=== PATIENT | female | born 1980 | race Caucasian/White ===

== ENCOUNTER 2020-10-08 06:55 | Outpatient (REF) | payer OTHER, SELFPAY | END 2020-10-08 06:56 | disposition home or self-care (01) | LOC: HO.LAB 06:55 | PROVIDERS: Visit Provider Internal Medicine | DX: Z20.828 Contact with and (suspected) exposure to other viral communicable diseases (principal) | CPT/HCPCS: C9803; U0003 ==

== ENCOUNTER 2023-08-30 12:48 | Outpatient (AMB) | payer OTHER, SELFPAY ==
--- NOTE | 2023-08-30 13:03 | MHC.OFFVIS ---
Intake Vital Signs 08/30/23 13:16 Height 4 ft 11 in Weight 157 lb 6 oz BMI 31.8 BP 120/82 Blood Pressure Location Lt brachial Position Sitting Pulse 95 Pulse Source Pulse Oximeter Pulse Oximetry (%) 97 Oxygen Delivery Method Room Air Intake Visit Reasons: ENP-Headaches/numbness feet and hands-CON Intake Note: Pt presents to the office today for a new patient visit for headaches/numbness feet and hands. Pt state she has a headache everyday. Pt states she has tried OTC medications which help for a little while but then comes back. Allergies No Known Allergies Allergy (Verified 08/30/23 13:17) Medication List - Last Reconciled 08/30/23 by Sadaf Azar MD epinephrine 0.3 mg IM ONCE PRN omeprazole 40 mg PO DAILY HPI HPI Comments History of Present Illness Details 42y/o female comes for evaluation of headaches and numbness in her hands. She reports daily headaches for 9 months. The headaches are persistent and fluctuates in intensity. The headaches frontal and radiates to the back.she describes the headaches are pounding , has some light sensitivity . She has mild nausea occasionally. she feels her eyes are tired and has some blurred vision, visual aura( photopsia). No vomiting.she wakes up with headaches .she takes tylenol 1000mg bid and naprosyn 1-2 per week.she denies neck pain. she also started having intermittent numbness in her hands.Denies tingling in her hands. she used to be obese - had bariatric surgery . she used to have RONEL and with weight loss her sleep improved. [facility] Medical History (Updated 08/30/23 @ 14:04 by Sadaf Azra MD) Numbness Chronic migraine with aura Back pain Asthma Obstructive sleep apnea Hyperlipidemia Pulmonary HTN Intestinal malabsorption Intertrigo Abdominal pannus Surgical History Hx of bilateral breast reduction surgery H/O gastric sleeve Family History Mother Leukemia Hypertension Maternal Grandmother Hypertension Brother Hypertension Brother Parkinsons Social History Household Members: Spouse Housing: House Alcohol intake: current Alcohol intake frequency: a few times a month Alcohol type: wine Patient Tobacco Use Status: Never used Tobacco Review of Systems Const Reports headache(s) Eyes Reports blurry vision ENT Reports headache(s) Musc Reports back pain Neuro Reports headache(s) Physical Exam Vital Signs: Last Vital Signs Pulse 95 08/30/23 13:16 BP 120/82 08/30/23 13:16 Pulse Ox 97 08/30/23 13:16 Oxygen Delivery Method Room Air 08/30/23 13:16 BMI result Body Mass Index 31.8 Const General: cooperative, healthy appearing and comfortable Nutritional Appearance: average body habitus Orientation/consciousness: patient oriented x3 Eyes Pupils: Equal, round and reactive pupils present Neuro General: patient oriented x3, gait normal, tone normal, moves all extremities and no focal motor deficits Cranial nerves: Yes Facial sensation intact/muscles of mastication intact, Yes Equal, round and reactive pupils present, Yes Normal accommodation reflex present, Yes Bilaterally intact EOM present, Yes Nystagmus not present, Yes Normal facial strength present, Yes Midline tongue present, Yes Symmetric palate elevation present and Yes Ability to bilaterally elevate shoulders present Cognition (Neuro): normal cognition Gait exam (Neuro): Normal gait present Motor exam (neuro): 5/5 motor strength present throughout and Normal motor muscle tone present throughout Deep tendon reflexes (DTR's): Right triceps reflex intensity grade: 2+, Left triceps reflex intensity grade: 2+, Rt Biceps (C5, C6): 2+, Left biceps reflex intensity grade: 2+, Right brachioradialis reflex intensity grade: 2+, Left brachioradialis reflex intensity grade: 2+, Right patellar reflex intensity grade: 2+ and Left patellar reflex intensity grade: 2+ Coordination: [id number] test normal Assessment & Plan Assessment & Plan (1) Chronic migraine with aura: Comment: with medication overuse headache Code(s): G43.E09 - Chronic migraine with aura, not intractable, without status migrainosus (2) Numbness: Comment: allison hands ? carpal tunnel Code(s): R20.0 - Anesthesia of skin Plan Stop tylenol or other OTC meds I will start her on topiramate XR 25mg qd, magnesium 400mg qhs Vit B 2 400mg qam F/u Ophthalmology for vision testing EMG NCS to evaluate numbness UE Medications: New magnesium oxide 400 mg PO BEDTIME 30 tabs 6RF riboflavin (vitamin B2) 400 mg PO DAILY 30 tabs 6RF topiramate 25 mg PO DAILY 30 caps 6RF Coding Level of Care Code New Pt Level 4 (33513) Diagnoses Chronic migraine with aura G43.E09 Numbness R20.0
[2023-08-30 13:16] VITALS: BP 120/82; PULSE 95; O2SAT 97; BMI 31.8
== END 2023-08-30 13:49 | disposition home or self-care (01) ==
PROVIDERS: Visit Provider Psychiatry & Neurology Neurology
DX: G43.E09 Chronic migraine with aura, not intractable, without status migrainosus (principal); R20.0 Anesthesia of skin
CPT/HCPCS: 99204

== ENCOUNTER → 2023-08-30 12:48 | Outpatient (BNVA) | payer OTHER, SELFPAY | PROVIDERS: Visit Provider Psychiatry & Neurology Neurology ==

== ENCOUNTER 2023-11-09 11:56 | Outpatient (REF) | payer OTHER, SELFPAY ==
[2023-11-09 14:44] LABS: Appearance Urine Clear; Color Urine Yellow; Glucose Urine UA Negative (Negative); Leukocyte Esterase Urine Negative (Negative); Nitrite Urine Negative (Negative); Specific Gravity - Urine 1.025 (1.005-1.025); Urine Blood Negative (Negative); Urine Ketones Negative (Negative); Urine Protein Negative (Neg-Trace)
[2023-11-09 14:56] LABS: Hematocrit 38.9 % (37.0-47.0); Hemoglobin 12.8 g/dl (12.0-16.0); Mean Corpuscular HGB Conc 32.9 g/dl (31.0-35.0); Mean Corpuscular Hemoglobin 28.6 pg (27.0-33.0); Mean Corpuscular Volume 86.8 fL (80.0-98.0); Mean Platelet Volume 12.4 fL (9.4-12.3); Platelet Count 284 X10*3/uL (160-400); Red Blood Count 4.48 X10*6/uL (4.20-5.50); Red Cell Distribution Width 13.3 % (11.0-16.0); White Blood Count 6.4 X10*3/uL (4.8-10.8)
[2023-11-09 15:15] LABS: Alanine Aminotransferase 34 U/L (0-31); Albumin Level 4.1 g/dL (3.5-5.0); Alkaline Phosphatase 54 U/L (39-117); Anion Gap 10 (12-20); Aspartate Amino Transferase 21 U/L (5-31); Bilirubin Total 0.3 mg/dL (0.0-1.0); Blood Urea Nitrogen 14 mg/dL (9-16); Calcium 8.9 mg/dL (8.4-10.2); Carbon Dioxide 24 mmol/L (22-29); Chloride 109 mmol/L (96-108); Cholesterol 259 mg/dL (<200); Estimated Glomerular Filt Rate > 60; Glucose Fasting 93 mg/dL (60-99); HDL Cholesterol 45 mg/dL (>40); LDL Cholesterol Calculated 198 mg/dL (<100); Potassium 3.7 mmol/L (3.3-5.1); Sodium 139 mmol/L (135-145); Total Protein 7.4 g/dL (6.5-8.0); Triglycerides 83 mg/dL (<150)
[2023-11-09 15:31] LABS: Vitamin D 25-OH Total 36.9 ng/mL (>30)
[2023-11-10 07:34] LABS: HIV AB/AG Nonreactive (Nonreactive); HIV Num 1 0.04 S/CO (0.00-0.99); ~HepC Num1 0.11 S/CO (0.00-0.79); ~Hepatitis C Antibody Nonreactive (Nonreactive)
== END 2023-11-09 11:57 | disposition home or self-care (01) ==
LOC: HO.CHCLDS 11:56
PROVIDERS: Visit Provider Family Medicine
DX: E66.9 Obesity, unspecified (principal); E55.9 Vitamin D deficiency, unspecified; R03.0 Elevated blood-pressure reading, without diagnosis of hypertension
CPT/HCPCS: 36415; 80053; 80061; 81003; 82306; 85027; 86803; 87389

== ENCOUNTER 2023-11-30 19:11 | Outpatient (REF) | payer OTHER, SELFPAY ==
[2023-12-04 23:54] LABS: HPV mRNA E6/E7 rflx Not Detected (Not Detected)
[2023-12-05 04:33] LABS: C. trachomatis RNA TMA NOT DETECTED (NOT DETECTED); N. gonorrhoeae RNA TMA NOT DETECTED (NOT DETECTED); Trichomonas (NAAT) NOT DETECTED (NOT DETECTED)
== END 2023-11-30 19:12 | disposition home or self-care (01) ==
LOC: HO.HHCLNP 19:11
PROVIDERS: Visit Provider Family Medicine
DX: Z12.4 Encounter for screening for malignant neoplasm of cervix (principal); Z11.51 Encounter for screening for human papillomavirus (HPV); Z20.2 Contact with and (suspected) exposure to infections with a predominantly sexual mode of transmission
CPT/HCPCS: 36415; 87491; 87591; 87624; 87661; 88142

== ENCOUNTER 2024-01-01 15:45 | Outpatient (REF) | payer OTHER, SELFPAY | END 2024-01-01 15:46 | disposition home or self-care (01) | LOC: HO.CHCLNP 15:45 | PROVIDERS: Visit Provider Registered Nurse | DX: J02.9 Acute pharyngitis, unspecified (principal) | CPT/HCPCS: 87070 ==

== ENCOUNTER 2024-01-22 15:04 | Outpatient (REF) | payer OTHER, SELFPAY ==
[2024-01-22 17:28] LABS: MANUAL DIFF FLAG NO
[2024-01-22 17:36] LABS: Basophils Absolute Auto 0.1 X10*3/uL (0.0-0.2); Basophils Percent Auto 0.8 % (0-2); Eosinophils Absolute Auto 0.1 X10*3/uL (0.0-0.4); Eosinophils Percent Auto 1.9 % (0-4); Hematocrit 39.4 % (37.0-47.0); Hemoglobin 12.9 g/dl (12.0-16.0); Imm Gran Abs Auto 0.02 X10*3/uL (0.00-0.03); Imm Gran Pct Auto 0.3 % (0.0-0.4); Lymphocytes Absolute Auto 2.2 X10*3/uL (1.2-4.9); Lymphocytes Percent Auto 33.9 % (20-40); Mean Corpuscular HGB Conc 32.7 g/dl (31.0-35.0); Mean Corpuscular Hemoglobin 28.7 pg (27.0-33.0); Mean Corpuscular Volume 87.6 fL (80.0-98.0); Monocytes Absolute Auto 0.4 X10*3/uL (0.1-1.2); Monocytes Percent Auto 5.5 % (2-11); Neutrophils Absolute Auto 3.7 x10*3/uL (2.0-8.3); Neutrophils Percent Auto 57.6 % (45-73); Platelet Count 248 X10*3/uL (160-400); White Blood Count 6.3 X10*3/uL (4.8-10.8)
[2024-01-22 17:47] LABS: Monotest Negative (Negative)
[2024-01-23 19:34] LABS: Cytomegalovirus Ab IgM <30.00 AU/mL; EBV-NA IgG Index >600.00 U/mL; EBV-VCA IgM Ab <36.00 U/mL
== END 2024-01-22 15:05 | disposition home or self-care (01) ==
LOC: HO.CHCLDS 15:04
PROVIDERS: Visit Provider Family Medicine
DX: R59.0 Localized enlarged lymph nodes (principal)
CPT/HCPCS: 36415; 85025; 86308; 86644; 86645; 86664; 86665

== ENCOUNTER 2024-01-24 11:02 | Outpatient (REF) | payer OTHER, SELFPAY ==
--- NOTE | ~2024-01-24 | US_ITS ---
EXAMINATION: US SOFT TISSUE OF THE NECK CLINICAL INFORMATION: 43-year-old female with persistent left-sided neck pain, concern of LAD. COMPARISON: None available. TECHNIQUE: Linear transducer grayscale and color Doppler examination of the right and left neck at zones II, III, IV. FINDINGS: RIGHT NECK SOFT TISSUES: The largest nodes are as follows: Level II: 2.2 x 0.7 x 1.4 cm. Normal thalia architecture. Level II: 1.5 x 0.6 x 1.3 cm. Normal thalia architecture. Level IV: 1.2 x 0.6 x 0.9 cm. Normal thalia architecture. LEFT NECK SOFT TISSUES: The largest lymph node is as follows: Level II: 1.2 x 0.7 x 1.5 cm. Normal thalia architecture. US/US soft tiss head and/or neck IMPRESSION: There are mildly enlarged bilateral cervical lymph nodes, as detailed. These are nonspecific and possibly reactive. Recommend management on a clinical basis. If of continued clinical concern, consider short-term follow-up ultrasound imaging in 3-6 months to ensure stability/regression.
== END 2024-01-24 11:03 | disposition home or self-care (01) ==
LOC: HO.HMGCX 11:02
PROVIDERS: PCP Family Medicine; Visit Provider Family Medicine
DX: R05.9 Cough, unspecified (principal)
CPT/HCPCS: 76536

== ENCOUNTER 2024-04-04 10:06 | Outpatient (REF) | payer OTHER, SELFPAY ==
[2024-04-04 11:04] LABS: MANUAL DIFF FLAG NO
[2024-04-04 12:00] LABS: Basophils Percent Auto 0.9 % (0-2); Eosinophils Absolute Auto 0.1 X10*3/uL (0.0-0.4); Eosinophils Percent Auto 2.5 % (0-4); Hematocrit 40.7 % (37.0-47.0); Hemoglobin 13.5 g/dl (12.0-16.0); Imm Gran Abs Auto 0.01 X10*3/uL (0.00-0.03); Imm Gran Pct Auto 0.2 % (0.0-0.4); Lymphocytes Absolute Auto 1.6 X10*3/uL (1.2-4.9); Lymphocytes Percent Auto 37.2 % (20-40); Mean Corpuscular HGB Conc 33.2 g/dl (31.0-35.0); Mean Corpuscular Hemoglobin 28.5 pg (27.0-33.0); Mean Corpuscular Volume 85.9 fL (80.0-98.0); Mean Platelet Volume 12.3 fL (9.4-12.3); Monocytes Absolute Auto 0.3 X10*3/uL (0.1-1.2); Monocytes Percent Auto 7.4 % (2-11); Neutrophils Absolute Auto 2.3 x10*3/uL (2.0-8.3); Neutrophils Percent Auto 51.8 % (45-73); Platelet Count 204 X10*3/uL (160-400); Red Blood Count 4.74 X10*6/uL (4.20-5.50); Red Cell Distribution Width 13.3 % (11.0-16.0); White Blood Count 4.4 X10*3/uL (4.8-10.8)
[2024-04-04 12:03] LABS: INTERNATIONAL NORM RATIO 0.9 (0.9-1.1); Prothrombin Time 11.1 SEC (11.1-13.3)
[2024-04-04 12:06] LABS: Partial Thromboplastin Time 30.7 SEC (26.0-36.8)
[2024-04-04 12:48] LABS: Anion Gap 13 (12-20); Blood Urea Nitrogen 11 mg/dL (9-16); Calcium 9.4 mg/dL (8.4-10.2); Carbon Dioxide 23 mmol/L (22-29); Chloride 106 mmol/L (96-108); Estimated Glomerular Filt Rate > 60; Glucose Random 77 mg/dL (60-115); Potassium 4.2 mmol/L (3.3-5.1); Sodium 138 mmol/L (135-145)
[2024-04-04 12:49] LABS: HCG Quantitative < 2 mIU/mL
== END 2024-04-04 10:07 | disposition home or self-care (01) ==
LOC: HO.CHCLDS 10:06
PROVIDERS: Visit Provider Family Medicine
DX: Z01.818 Encounter for other preprocedural examination (principal)
CPT/HCPCS: 36415; 80048; 84702; 85025; 85610; 85730; 86850; 86900; 86901

== ENCOUNTER 2024-05-08 09:25 | Outpatient (REF) | payer OTHER, SELFPAY | END 2024-05-08 09:26 | disposition home or self-care (01) | LOC: HO.CHCLDS 09:25 | PROVIDERS: Visit Provider Family Medicine | DX: R79.89 Other specified abnormal findings of blood chemistry (principal) | CPT/HCPCS: 36415; 84443 ==

== ENCOUNTER 2024-07-16 07:34 | Outpatient (REF) | payer OTHER, SELFPAY ==
[2024-07-16 08:17] LABS: MANUAL DIFF FLAG NO
[2024-07-16 08:35] LABS: Basophils Percent Auto 0.8 % (0-2); Eosinophils Absolute Auto 0.1 X10*3/uL (0.0-0.4); Eosinophils Percent Auto 2.5 % (0-4); Hematocrit 40.1 % (37.0-47.0); Imm Gran Abs Auto 0.02 X10*3/uL (0.00-0.03); Imm Gran Pct Auto 0.4 % (0.0-0.4); Lymphocytes Absolute Auto 1.9 X10*3/uL (1.2-4.9); Lymphocytes Percent Auto 38.3 % (20-40); Mean Corpuscular HGB Conc 32.4 g/dl (31.0-35.0); Mean Corpuscular Hemoglobin 28.3 pg (27.0-33.0); Mean Corpuscular Volume 87.2 fL (80.0-98.0); Mean Platelet Volume 11.9 fL (9.4-12.3); Monocytes Absolute Auto 0.3 X10*3/uL (0.1-1.2); Monocytes Percent Auto 5.6 % (2-11); Neutrophils Absolute Auto 2.6 x10*3/uL (2.0-8.3); Neutrophils Percent Auto 52.4 % (45-73); Platelet Count 207 X10*3/uL (160-400); Red Cell Distribution Width 13.7 % (11.0-16.0); White Blood Count 4.9 X10*3/uL (4.8-10.8)
[2024-07-16 08:39] LABS: INTERNATIONAL NORM RATIO 0.9 (0.9-1.1); Prothrombin Time 11.4 SEC (11.1-13.3)
[2024-07-16 08:42] LABS: Partial Thromboplastin Time 30.3 SEC (26.0-36.8)
[2024-07-16 08:46] LABS: Appearance Urine Clear; Color Urine Yellow; Glucose Urine UA Negative (Negative); Leukocyte Esterase Urine Negative (Negative); Nitrite Urine Negative (Negative); PH >= 9.0 (5.0-9.0); Urine Blood Negative (Negative); Urine Ketones Negative (Negative); Urine Protein Negative (Neg-Trace)
[2024-07-16 09:06] LABS: Bacteria Urine None Seen (None Seen); Hyaline Casts Urine 0-2 /LPF (0-2); RBC Urine 0-2 /HPF (0-2); Squamous Epithelial Cell Urine 0-2 /HPF (0-2); WBC Urine 0-5 /HPF (0-5)
[2024-07-16 09:28] LABS: Alanine Aminotransferase 14 U/L (0-31); Albumin Level 3.9 g/dL (3.5-5.0); Alkaline Phosphatase 45 U/L (39-117); Anion Gap 10 (12-20); Aspartate Amino Transferase 14 U/L (5-31); Bilirubin Total 0.4 mg/dL (0.0-1.0); Blood Urea Nitrogen 13 mg/dL (9-16); Calcium 8.6 mg/dL (8.4-10.2); Carbon Dioxide 24 mmol/L (22-29); Chloride 111 mmol/L (96-108); Cholesterol 242 mg/dL (<200); Estimated Glomerular Filt Rate > 60; Glucose Random 90 mg/dL (60-115); HDL Cholesterol 41 mg/dL (>40); LDL Cholesterol Calculated 182 mg/dL (<100); Potassium 4.3 mmol/L (3.3-5.1); Sodium 141 mmol/L (135-145); Total Protein 6.7 g/dL (6.5-8.0); Triglycerides 96 mg/dL (<150)
[2024-07-16 09:32] LABS: HIV AB/AG Nonreactive (Nonreactive); HIV Num 1 0.05 S/CO (0.00-0.99); ~HepC Num1 0.19 S/CO (0.00-0.79); ~Hepatitis C Antibody Nonreactive (Nonreactive)
[2024-07-16 09:45] LABS: HCG Quantitative < 2 mIU/mL; Vitamin D 25-OH Total 23.3 ng/mL (>30)
== END 2024-07-16 07:35 | disposition home or self-care (01) ==
LOC: HO.LAB 07:34
PROVIDERS: PCP Family Medicine; Visit Provider Family Medicine
DX: Z01.810 Encounter for preprocedural cardiovascular examination (principal); E66.9 Obesity, unspecified; R03.0 Elevated blood-pressure reading, without diagnosis of hypertension; E55.9 Vitamin D deficiency, unspecified
CPT/HCPCS: 36415; 80053; 80061; 81001; 82306; 84702; 85025; 85610; 85730; 86803; 87389

== ENCOUNTER 2024-09-02 08:37 | Outpatient (REF) | payer OTHER, SELFPAY ==
[2024-09-02 14:12] LABS: MANUAL DIFF FLAG NO
[2024-09-02 14:16] LABS: Eosinophils Absolute Auto 0.1 X10*3/uL (0.0-0.4); Eosinophils Percent Auto 1.8 % (0-4); Hematocrit 36.2 % (37.0-47.0); Hemoglobin 11.1 g/dl (12.0-16.0); Imm Gran Abs Auto 0.01 X10*3/uL (0.00-0.03); Imm Gran Pct Auto 0.3 % (0.0-0.4); Lymphocytes Absolute Auto 1.5 X10*3/uL (1.2-4.9); Lymphocytes Percent Auto 36.5 % (20-40); Mean Corpuscular HGB Conc 30.7 g/dl (31.0-35.0); Mean Corpuscular Hemoglobin 27.8 pg (27.0-33.0); Mean Corpuscular Volume 90.7 fL (80.0-98.0); Monocytes Absolute Auto 0.3 X10*3/uL (0.1-1.2); Monocytes Percent Auto 8.3 % (2-11); Neutrophils Absolute Auto 2.1 x10*3/uL (2.0-8.3); Neutrophils Percent Auto 52.1 % (45-73); Platelet Count 282 X10*3/uL (160-400); Red Blood Count 3.99 X10*6/uL (4.20-5.50); Red Cell Distribution Width 15.2 % (11.0-16.0)
[2024-09-02 14:33] LABS: Iron 57 mcg/dL (30-160); Percent Iron Saturation 19 % (15-50); Total Iron Binding Capacity 296 mcg/dL (228-428); Unsaturated Iron Binding 239 ug/dL
[2024-09-02 14:55] LABS: Ferritin 75 ng/mL (10-250)
== END 2024-09-02 08:38 | disposition home or self-care (01) ==
LOC: HO.CHCLDS 08:37
PROVIDERS: Visit Provider Family Medicine
DX: R89.9 Unspecified abnormal finding in specimens from other organs, systems and tissues (principal)
CPT/HCPCS: 36415; 82728; 83540; 85025

== ENCOUNTER 2025-04-15 08:25 | Outpatient (REF) | payer OTHER, SELFPAY ==
--- OUTSIDE RECORDS SUMMARY | 2025-04-15 08:35 | XMS_ITS | Encounter Summary ---
Author Organization [employer] Address [address] [place] [address] Care Team Providers Care Construction Representative Name Role Phone Jody Rey MD Primary Care Provider [phone] Encounter Details Date Type Department Care Team ([facility] st Contact Info) Description 01/10/2025 Orders Only [place] [address] [place] [address] Provider, MD Isa Social History Tobacco Use Types Packs/Day Years Used Date Smoking Tobacco: Never Passive Smoke Exposure: Never Smokeless Tobacco: Never Depression Answer Date Recorded Patient Health Questionnaire-9 Score 4 11/09/2023 Patient Health Questionnaire-9 Score 4 11/09/2023 Last PHQ-9: Questionnaire Data Not on file 1 01/10/2023 Housing Stability Answer Date Recorded What is your housing situation today? I have lewkalyan sebastian 11/02/[address] you li ve. Do you have problems with any of the following? None of the above 11/02/2023 Food Insecurity Answer Date Recorded Within the past 12 months, y ou worried that your food would run out before you got money to buy more: Never True 11/02/2023 Within the past 12 months,th e food you bought just didn't last and you didn't have enough money to get more: Never True 05/2023 Transportation Answer Date Recorded In the past 12 months, has l ack of transportation kept you from medical appts, meetings, work or from getting things needed for daily living? No 11/02/2023 Utilities Answer Date Recorded In the past 12 months, has t he electric, gas, oil or water company threatened to shut off services in your home? No 11/02/2023 Depression Answer Date Recorded Patient Health Questionnaire-2 Score 2 11/09/2023 Comments No Sex and Gender Information Value Date Recorded Sex Assigned at Female 09/26/2022 10:39 AM EDT Legal Sex Female 3:37 PM EDT Gender Identity Female 11/09/2023 12:26 PM EST Sexual Orientation Straight 11/09/2023 12 :26 PM EST documented as of this encounter Plan of Treatment Not on file documented as of this encounter Procedures Procedure Name Priority Date/Time Associated Diagnosis Comments BI MAMMOGRAM SCREENING BILATERAL Routine 01/09/2025 2:45 PM EST documented in this encounter Results * BI Mammogram Screening Bilateral (01/09/2025 2:45 PM EST) Anatomical Region Laterality Modality Breast Bilateral Mammography us Historical Provider MD MASTERS BI PROCEDURES Final R esult documented in this encounter Visit Diagnoses Not on filedocumented in this encounter Additional Health Concerns Assessment Noted Time PHQ-9 Depression Total Score: 4 11/09/20 10:51 AM EST documented as of this encounter Care Teams Construction Representative Relationship Specialty Start Date End Date Jody Rey MD [address] [place] [address] PCP - General Family Medicine 09/18/23 documented as of this encounter
--- OUTSIDE RECORDS SUMMARY | 2025-04-15 08:35 | XMS_ITS | Encounter Summary ---
Author Organization [employer] Address [address] [place] [address] Care Team Providers Care Woods Rider Name Role Phone Jody Rey MD Primary Care Provider [phone] Reason for Visit * Reason Onset Date Comments Medication Question 04/11/2025 Encounter Details Date Type Department Care Team ([facility] Contact Info) Description 04/11/2025 Telephone [facility] [address] [place] [address] Jody Rey MD [address] [place] [address] Medication Question Social History Tobacco Use Types Packs/Day Years Used Date Smoking Tobacco: Never Passive Smoke Exposure: Never Smokeless Tobacco: Never Depression Answer Date Recorded Patient Health Questionnaire-9 Score 6 04/04/2025 Patient Health Questionnaire-9 Score 6 04/04/2025 Last PHQ-9: Questionnaire Data Not on file 0 04/04/2025 Housing Stability Answer Date Recorded What is [...] Answer Date Recorded Patient Health Questionnaire-2 Score 1 04/04/2025 Internet Access Answer Date Recorded Internet Access Q1 Yes 03/28/2025 Internet Access Q2 Not on file 03/28/2025 Comments No Sex and Gender Information Value Date Recorded Sex Assigned at Female 09/26/2022 10:39 AM EDT Legal Sex Female 3:37 PM EDT Gender Identity Female 11/09/2023 12:26 PM EST Sexual Orientation Straight 11/09/2023 12 :26 PM EST documented as of this encounter Miscellaneous Notes * Telephone Encounter - Carolynn Blood - 04/11/2025 11:24 AM EDT Pt states zepbound is not covered by her insurance and pharmacy [facility] [address] stated if pt can be prescribed wegovy, pt aware to also call her insurance to verify they accept wegovy, any questions pls call pt documented in this encounter Plan of Treatment Not on file documented as of this encounter Visit Diagnoses Not on filedocumented in this encounter Additional Health Concerns Assessment Noted Time PHQ-9 Depression Total Score: 6 04/04/20 25 9:41 AM EDT documented as of this encounter Care Teams Woods Rider Relationship Specialty Start Date End Date Jody Rey MD [address] [place] [address] PCP - General Family Medicine 09/18/23 documented as of this encounter
--- OUTSIDE RECORDS SUMMARY | 2025-04-15 08:35 | XMS_ITS | Clinical Summary ---
Author Organization [address] [facility] Address [address] [place] [address] Phone Care Team Providers Care Electric Golf Cart Repairer Name Role Phone Jody Rey MD Primary Care Provider [phone] Allergies No known active allergies Medications cholecalciferol (VITAMIN D-3) 1,250 mcg (50,000 unit) capsule TOME 1 CAPSULA POR VIA ORAL TOMAS VEZ POR SEMANA 4 Active EPINEPHrine (EPIPEN) 0.3 mg/0.3 mL injection Infuse 0.3 mL (0.3 mg total) into a venous catheter. 3 Active levonorgestreL (MIRENA) 21 mcg/24hr (up to 8 yrs) 52 mg IUD 1 Device (1 each total) by intrauterine route 1 (one) time. 0 Active omeprazole (PriLOSEC) [address] capsule Take 1 capsule (20 mg total) by mouth. 3 Active Active Problems Problem Noted Date Diagnosed Date Primary pulmonary hypertension (CMS/HCC V24, CMS /HCC V28) 10/02/2024 Intestinal malabsorption following gastrectomy 1 Vitamin D deficiency 05/14/2019 Obesity (BMI 30.0-34.9) 02/12/2019 Overview (10/02/2024): s/p gastric sleeve (2017) Depression 05/31/2018 GERD (gastroesophageal reflux disease) 7 Overview (10/02/2024): H/o Minimal erosive gastritis EGD 01/27/2017, Neg for H. pylori. Probably caused by NSAIDs. Sleep related hypoventilatio n in conditions classified elsewhere 12/29/2015 Obstructive sleep apnea 12/29/2015 Overview (10/02/2024): [facility] Home Polysomnogram: Date 02/04/2019; EULA 12, AH 8; HI 5; Unclassified apneas 0; Obstructive apneas 46; Central apneas 15; Mixed apneas 1; hypopneas 39; average oxygen saturation 95% (lowest 78% without saturations <88% for 5% or more of study) - Obstructive Sleep Apnea - mild; mostly obstructive apneas and hypopneas; some central apneas; without sleep related hypoventilation by 2019 home polysomnogram. Asthma 10/29/2015 Prediabetes 01/23/2015 Overview (10/02/2024): 5.8 A1c Phlebolithiasis 11/25/2014 Overview (10/02/2024): CT abdomen w/contrast- no evidence of bowel obstruction or appendicitis Left ovary corpus luteum. Multiple phleboliths along rt ureter,no renal calculi or hydronephrosis. Rt sided retroperitoneal lymphadenopathy . ? Unclear etiology. Back pain 08/05/2014 Overview (10/02/2024): -minimal spondylitic change Hematuria 08/01/2014 Overview (10/02/2024): Flank pain. Nml CT- no renal stones/obstruction Headache 06/25/2014 Overview (10/02/2024): Seen in er at [facility] on 09/19/14 for headache,possible flagyl side effect Sent home on fioricet and stop flagyl . Ct head- negetive. Ct head- 11/05/14- neg Seen for headache at [facility] on Dec 8 as well as 9 -on percocet. Surgical History Surgery Date Site/Laterality Comments UPPER GASTROINTESTINAL ENDOSCOPY 01/27/2017 PROCEDURE: [place] UPPER GI ENDOSCOPY PERFORMED; COMMENT: mild erosive gastritis; CLOtest negative. TUBAL LIGATION 2002 PROCEDURE: HISTORICAL TUBAL LIGATION SECTION PROCEDURE: HISTORICAL DELIVERY COLONOSCOPY 12/23/2020 PROCEDURE: HISTORICAL COLONOSCOPY; COMMENT: normal. BREAST REDUCTION PROCEDURE: [place] BREAST REDUCTION; COMMENT: 1997 ESOPHAGOGASTRODUODENOSCOPY 01/26/2022 PROCEDURE: [place] EGD TRANSORAL BIOPSY SINGLE/MULTIPLE; COMMENT: consistent with gastric sleeve, biopsy normal Medical History Medical History Date Comments Family history of breast cancer 03/23/2018 DX:Family history of breast cancer; COMMENT: Pt myRisk negative with Tyrer-Cuzick Score = 8.2% = low risk Asthma 10/29/2015 DX:Asthma Back pain 08/05/2014 DX:Back pain; CO MMENT: Overview: -minimal spondylitic change Depression 05/31/2018 DX:Depression GERD (gastroesophageal reflu x disease) 01/30/2017 DX:GERD (gastroesophageal re flux disease); COMMENT: H/o Minimal erosive gastritis EGD 01/27/2017, Neg for H. pylori. Probably caused by NSAIDs. Headache 06/25/2014 DX:Headache; COM MENT: Overview: Seen in er at [facility] on 09/19/14 for headache,possible flagyl side effect Sent home on fioricet and stop flagyl . Ct head- negetive. Ct head- 11/05/14- neg Seen for headache at [facility] on Nov 03 as well as 9 -on percocet. Hematuria 08/01/2014 DX:Hematuria; CO MMENT: Flank pain. Nml CT- no renal stones/obstruction Hyperlipidemia 10/29/2015 DX:Hyperlipidemi a Morbid obesity with BMI of 4 0.0-44.9, adult ([facility] V24, [facility] V28) 06/25/2014 DX:Morbid obesity wit h BMI of 40.0-44.9, adult ([facility]) Obstructive sleep apnea 12/29/2015 DX:Obstr uctive sleep apnea Phlebolithiasis 11/25/2014 DX:Phlebolithias is; COMMENT: CT abdomen w/contrast- no evidence of bowel obstruction or appendicitis Left ovary corpus luteum. Multiple phleboliths along rt ureter,no renal calculi or hydronephrosis. Rt sided retroperitoneal lymphadenopathy . ? Unclear etiology. Primary pulmonary hypertensi on ([facility] V24, [facility] V28) DX:Primary pulmonary hypert ension (HCC) Sleep-related hypoventilation 12/29/2015 DX :Sleep-related hypoventilation Family History Medical History Relation Name Comments Breast cancer Aunt mat aunt Other: Ovarian cancer Aunt mat aunt matern al aunt No Known Problems Brother 1 No Known Problems Brother 2 Alcohol abuse Father age 3 4; no paternal family information No Known Problems Maternal Grandfather Other cancer Maternal Grandmother as a yo mireille adult, glaucoma, cataract Leukemia Mother AIDS a ge 32 Other: breast cancer Other materna l great aunt; unilateral No Known Problems Paternal Grandfather No Known Problems Paternal Grandmother No Known Problems Sister No Known Problems Son 1 No Known Problems Son 2 No Known Problems Uncle Blindness Neg Hx Colon cancer Neg Hx Macular degeneration Neg Hx Strabismus Neg Hx Relation Name Status Comments Aunt mat aunt Alive Brother 1 Alive Brother 2 Alive Father (Age 34) alcoholic Maternal Grandfather Maternal Grandmother Alive Mother (Age 32) leukemia; AIDS Other Alive Paternal Grandfather Paternal Grandmother Sister Son 1 Alive Son 2 Alive Uncle Social History Tobacco Use Types Packs/Day Years Used Date Smoking Tobacco: Never Smokeless Tobacco: Never Alcohol Use Standard Drinks/Week Comments Yes 0 (1 standard drink = 0.6 oz pur e alcohol) Comments No Sex and Gender Information Value Date Recorded Sex Assigned at Not on file Legal Sex Female 9:02 AM EST Gender Identity Not on file Sexual Orientation Not on file Obstetrics History Para Term AB IAB SAB Ectopic Multiple Livin g Live Births 2 2 2 2 Date Outcome GA Total Labor Labor/2nd/3rd Weight Sex Type Anes PTL Kendal A1 A5 Name Clin Term Term Last Filed Vital Signs Vital Sign Reading Time Taken Comments Blood Pressure 132/85 11/28/2024 1:46 PM EST Pulse 89 11/28/2024 1:46 PM EST Temperature 36.4 ??C (97.6 ??F) 11/28/2024 1:46 PM ES T Respiratory Rate - - Oxygen Saturation - - Inhaled Oxygen Concentration - - Weight 67.6 kg (149 lb) 11/28/2024 1:46 PM EST Height 149.9 cm (4' 11 ) 11/28/2024 1:46 PM EST Body Mass Index 30.09 11/28/2024 1:46 PM EST Plan of Treatment Upcoming Encounters Date Type Department Care Team (Late st Contact Info) Description 12/02/2025 10:00 AM EST Office Visit Bariatric Surgery - [place] [address] [place] [id number] Silvestre Reza MD [address] [place] [address] Health Maintenance Due Date Last Done Comments DTaP,Tdap,and Td Vaccines (1 - Tdap) 1998 Hepatitis B Vaccines (1 of 3 - 19+ 3-dose series) 1998 Cervical Cancer Screening: HPV 2000 Pneumococcal Vaccine: Pediatrics (0 to 5 Years) and At-Risk Patients (6 to 64 Years) (2 of 2 - PCV) 01/25/2019 01/25/2018 Colorectal Cancer Screening: Colonoscopy 11/05/2022 Social Influencers of Health Screening 11/05/2022 COVID-19 Vaccine ( season) 2024 11/02/2021, 01/27/2021, 01/06/2021 Depression Screening 11/09/2024 11/09/2023 Hypertension/CHF/CAD Annual BMP Blood Test 11/28/2024 Influenza Vaccine (Season Ended) 2025 10/05/2021, 02/05/2020 Breast Cancer Screening 01/09/2027 01/09/20, 07/01/2022, 07/09/2021, Additional history exists Cholesterol Screening (Lipid Panel) 07/16/2029 07/16/2024 HIV Screening Completed 07/16/2024 Hepatitis C Screening Completed 07/16/2024 HIB Vaccines Aged Out No longer eligi ble based on patient's age to complete this topic HPV Vaccines Aged Out No longer eligi ble based on patient's age to complete this topic Hepatitis A Vaccines Aged Out No long er eligible based on patient's age to complete this topic IPV Vaccines Aged Out No longer eligi ble based on patient's age to complete this topic MMR Vaccines Aged Out No longer eligi ble based on patient's age to complete this topic Meningococcal ACWY Vaccine Aged Out N o longer eligible based on patient's age to complete this topic Meningococcal B Vaccine Aged Out No l onger eligible based on patient's age to complete this topic RSV Immunization Patients Under 20 months Aged Out No longer eligible based on patient's age to complete this topic Varicella Vaccines Aged Out No longer eligible based on patient's age to complete this topic Procedures Procedure Name Priority Date/Time Associated Diagnosis Comments MG MAMMO DIGITAL SCREENING W NATALIA BILAT Routine 01/09/2025 8:02 AM EST Screening mammogram, encounter for from Last 3 Months or Most Recently Relevant to Health Maintenance Results * MG Mammo Digital Screening w Natalia bilat (01/09/2025 8:02 AM EST) Anatomical Region Laterality Modality Breast Bilateral Mammography 01/09/2025 2:05 PM EST Impressions 01/09/2025 2:08 PM EST No mammographic evidence of malignancy. BREAST DENSITY: B - There are scattered areas of fibroglandular density. BI-RADS CATEGORY: 2 - BENIGN RECOMMENDATION: Screening bilateral mammogram is recommended in 1 year. MAMMO LOCATION: [facility], [address] [place] [address], [id number], . -------- FINAL REPORT -------- Dictated By: Lavonne Rinaldi Dictated Date: 01/09/2025 14:05 ET Assigned Physician: Lavonne Rinaldi Reviewed and Electronically Signed By: Lavonne Rinaldi Signed Date: 01/09/2025 14:08 ET Workstation ID: [id number] Transcribed By: Self Edit Transcribed Date: 01/09/2025 14:05 ET Narrative 01/09/2025 2:08 PM EST EXAM: Screening Mammogram CLINICAL: 44 years old, Female, routine annual exam. ??History of bilateral reduction mammoplasty July 2024. COMPARISON: 07/01/2022 and 06/25/2021 TECHNIQUE: Bilateral MLO and CC views were obtained digitally with 3-D mammogram (digital breast tomosynthesis). Computer-aided detection was utilized in evaluation of this exam (CAD). FINDINGS: Interval postsurgical changes of bilateral reduction mammoplasty which have expected appearance. ??This will serve as a new baseline mammogram. ??No suspicious mass, architectural distortion, or suspicious calcifications identified. Procedure Note Lavonne Rinaldi MD - 01/09/2025 EXAM: Screening Mammogram CLINICAL: 44 years old, Female, routine annual exam. History of bilateralreduction mammoplasty July 2024. COMPARISON: 07/01/2022 and 06/25/2021 TECHNIQUE: Bilateral MLO and CC views were obtained digitally with 3-Dmammogram (digital breast tomosynthesis). Computer-aided detection wasutilized in evaluation of this exam (CAD). FINDINGS: Interval postsurgical changes of bilateral reduction mammoplasty whichhave expected appearance. This will serve as a new baseline mammogram.No suspicious mass, architectural distortion, or suspicious calcificationsidentified. IMPRESSION: No mammographic evidence of malignancy. BREAST DENSITY: B - There are scattered areas of fibroglandular density. BI-RADS CATEGORY: 2 - BENIGN RECOMMENDATION: Screening bilateral mammogram is recommended in 1 year. MAMMO LOCATION: [facility], [address] [place] [address], [id number], . 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
--- OUTSIDE RECORDS SUMMARY | 2025-04-15 08:35 | XMS_ITS | Encounter Summary ---
Author Organization [employer] Address [address] [place] [address] Care Team Providers Care Toe Stripper Name Role Phone Jody Rey MD Primary Care Provider [phone] Reason for Visit * Reason Comments Med Change Request Encounter Details Date Type Department Care Team ([facility] Contact Info) Description 04/04/2025 Refill [facility] [address] [place], [place] [phone] Jody Rey MD [address] [place] [address] Obstructive sleep apnea Social History Tobacco Use Types Packs/Day Years Used Date Smoking Tobacco: Never Passive Smoke Exposure: Never Smokeless Tobacco: Never Depression Answer Date Recorded Patient Health Questionnaire-9 Score 6 04/04/2025 Patient Health Questionnaire-9 Score 6 04/04/2025 Last PHQ-9: Questionnaire Data Not on file 0 04/04/2025 Housing Stability Answer Date Recorded What is your housing situation today? I have lew sebastian 11/02/[address] you [...] PM EST documented as of this encounter Functional Status * Over the past 2 weeks, how often have you been bothered by any of the following problems? Question Answer Date of Assessment Author Patient Health Questionnaire-2 Score 1 07/2025 9:41 AM EDT Monalisa Huffman [place] * Little interest or pleasure in doing things Answer Date of Assessment Author Not at all 04/04/2025 9:41 AM EDT Monalisa Huffman MA * Feeling down, depressed, or hopeless Answer Date of Assessment Author Several days 04/04/2025 9:41 AM NEHALT Monalisa Huffman MA * Trouble falling or staying asleep, or sleeping too much Answer Date of Assessment Author Several days 04/04/2025 9:41 AM EDT Monalisa Huffman MA * Feeling tired or having little energy Answer Date of Assessment Author More than half the days 04/04/2025 9:41 AM EDT Monalisa Reyes MA * Poor appetite or overeating Answer Date of Assessment Author Several days 04/04/2025 9:41 AM NEHALT Monalisa Huffman MA * Feeling bad about yourself - or that you are a failure or have let yourself or your family down Answer Date of Assessment Author Several days 04/04/2025 9:41 AM EDT Monalisa Huffman MA * Trouble concentrating on things, such as reading the newspaper or watching television Answer Date of Assessment Author Not at all 04/04/2025 9:41 AM EDT Monalisa Huffman MA * Moving or speaking so slowly that other people could have noticed? Or the opposite - being so fidgety or restless that you have been moving around a lot more than usual. Answer Date of Assessment Author Not at all 04/04/2025 9:41 AM EDT Monalisa Huffman MA * Thoughts that you would be better off or hurting yourself in some way Answer Date of Assessment Author Not at all 04/04/2025 9:41 AM EDT Monalisa Huffman MA * Patient Health Questionnaire-9 Score Answer Date of Assessment Author 6 04/04/2025 9:41 AM EDT Monalisa Huffman MA * How difficult have these problems made it for you to do your work, take care of things at home, or get along with other people? Answer Date of Assessment Author Somewhat difficult 04/04/2025 9:41 AM EDT Monalisa Matias MA documented as of this encounter Plan of Treatment Not on file documented as of this encounter Visit Diagnoses Diagnosis Obstructive sleep apnea Obstructive sleep apnea (adult) (pediatric) documented in this encounter Additional Health Concerns Assessment Noted Time PHQ-9 Depression Total Score: 6 04/04/20 25 9:41 AM EDT documented as of this encounter Care Teams Toe Stripper Relationship Specialty Start Date End Date Jody Rey MD [address] [place] [address] PCP - General Family Medicine 09/18/23 documented as of this encounter
--- OUTSIDE RECORDS SUMMARY | 2025-04-15 08:35 | XMS_ITS | Clinical Summary ---
Author Organization [employer] Address [address] [facility] [place] [address] Care Team Providers Care Mental Retardation Nurse Name Role Phone Jody eRy MD Primary Care Provider [phone] Allergies No known active allergies Medications * This document contains information received from the source organization and may not represent a complete record from that organization. Levonorgestrel 20 MCG/DAY intrauterine device 1 each by Intrauterine route 1 (one) time. 020 Active riboflavin (Vitamin B-2) 400 MG tablet TOME TOMAS TABLETA TODOS LOS D 023 Active Blood Pressure kit 1 Units in the morning. 1 kit 023 Active butalbital-acetam inophen-caffeine 50-325-40 MG tablet Take 1 tablet by mouth every 6 (six) hours if needed for headaches. 20 tablet 023 Active omeprazole (PriLOSEC) [address] capsuleIndication s:Gastroesophagea l Reflux Disease TAKE 2 CAPSULES (40 MG) BY MOUTH BEFORE BREAKFAST. 180 capsule 1 024 Active famotidine (Pepcid) 40 MG tablet Take 1 tablet (40 mg) by mouth at bedtime. 90 tablet 1 024 Active loratadine (Claritin) 10 MG tablet TOME TOMAS TABLETA TODOS LOS JIMENES EN LA MANANA 90 tablet 1 024 Active prednisoLONE acetate (Pred-Forte) 1 % ophthalmic suspension PONGA TOMAS GOTA EN LOS DOS OJOS TODOS LOS D 024 Active losartan (Cozaar) 50 MG tabletIndications :Elevated BP without diagnosis of hypertension TAKE 1 TABLET BY MOUTH EVERY MORNING 90 tablet 1 024 Active EPINEPHrine (Epipen) 0.3 MG/0.3ML injection syringe Inject 0.3 mL (0.3 mg) as directed 1 (one) time for 1 dose. 0.3 mL 024 Active tobramycin-dexAME THasone (Tobradex) ophthalmic suspension INSTILL 1 DROP INTO OPERATIVE EYE LAURI CHIRINOS A . START AFTER SURGERY. 024 Active omega-3 acid ethyl esters (Lovaza) 1 g capsuleIndication s:Hyperlipidemia, unspecified hyperlipidemia type Take 1 capsule (1 g) by mouth 2 times daily. 60 capsule 11 024 2024 Active cholecalciferol (Vitamin D-3) 1.25 MG (86257 UT) capsule Take 1 capsule (50,000 Units) by mouth 1 (one) time per week. 1 capsule 3 024 Active ferrous gluconate (Fergon) 324 (38 Fe) MG tablet Take 1 tablet (324 mg) by mouth with breakfast. 90 tablet 1 024 Active Tirzepatide-Weigh t Management (Zepbound) 2.5 MG/0.5ML solution auto-injectorIndi cations:Obstructi ve sleep apnea Inject 0.5 mL (2.5 mg) under the skin 1 (one) time per week. 2 mL 3 025 Active topiramate (Topamax) 50 MG tabletIndications :Other migraine without status migrainosus, intractable Take 1 tablet (50 mg) by mouth Once per day. 90 tablet 1 025 Active SUMAtriptan (Imitrex) 50 MG tablet Take 1 tablet (50 mg) by mouth 1 (one) time if needed for migraine. May repeat dose once in 2 hours if no relief. Do not exceed 2 doses in 24 hours. 9 tablet 025 Active melatonin 5 MG tablet Take 1 tablet (5 mg) by mouth Once per day. 90 tablet 1 025 Active topiramate (Topamax) 50 MG tabletIndications :Other migraine without status migrainosus, intractable Take 50 mg by mouth in the morning. 90 tablet 1 023 2024 Discontinued(R eorder (will not trigger notification to Pharmacy)) SUMAtriptan (Imitrex) 50 MG tablet TAKE 1 TABLET AT LEAST 4 HOURS BETWEEN DOSES NEEDED UP TO 2X/24H ORALLY TWICE A DAY 30 DAYS 024 2024 Discontinued(R eorder (will not trigger notification to Pharmacy)) Active Problems Problem Noted Date Diagnosed Date Penetrating traumatic injury of face 04/07/2025 Assessment & Plan (04/07/2025 8:23 AM EDT): Patient reports persistent scarring and subcutaneous issues following the traumatic incident, including swelling under the cheek. These concerns are causing ongoing discomfort and may be contributing to the patient's emotional distress. Plan: - Recommend silicone scar sheets (e.g., Scaraway patches) for scar management and keloid prevention - Refer to surgeon for evaluation of subcutaneous swelling, particularly under the cheek - Educate patient on proper use of silicone patches and their effectiveness compared to topical creams Acute stress disorder 03/24/2025 Assessment & Plan (04/07/2025 8:22 AM EDT): Patient reports significant emotional distress and anxiety following a traumatic accident with a basketball hoop. She describes feeling not the same since the incident, experiencing persistent anxiety, emotional eating, and difficulty sleeping. The patient mentions feeling pessimistic, tired, and like a different person. These symptoms, occurring for approximately 3 months post-incident, suggest post- traumatic stress. The patient's family dynamics, including a who doesn't believe in depression and conflicts with her son, may be exacerbating her emotional state. Plan: - Recommend continuation of therapy with current therapist - Discuss potential benefits of antidepressants, addressing patient's concerns about side effects - Encourage development of self-care routines and stress-reduction techniques - Suggest utilization of cam[place] for relaxation - Follow up in 4 weeks to reassess emotional state and effectiveness of interventions Assessment & Plan (03/24/2025 11:21 AM EDT): During IBH Consult Donna presenting with distress memories of her accident, flashbacks, psychological distress, efforts to avoid thoughts/feelings associated with her accident, sleep problem, hypervigilance and difficulty concentrating; for a period of 30 days, for most or all symptoms in the context of illness or family illness. Patient reported she had an accident at home. Pt was hit by basketball hoop last month and had an open area in her forehead. Since then, pt has experienced sxs described above. She feels anxious, scared and has been having issues sleeping and eating more than normal. Pt receives positive support at home. Her sense of resilience is strong and main strength. Pt will be referred for therapy services. Discussed importance of utilizing coping skills in her daily routine and continue applying strategies that are currently working for her. Pt agreed to follow-up with team if needed. Open wound 09/02/2024 Assessment & Plan (09/02/2024 11:09 AM EDT): Not infected, will close by secondary intention, discuss wound care. RTC if no improvement, area with granulation tissues. Abnormal laboratory test result 08/23/2024 Assessment & Plan (08/23/2024 1:31 PM EDT): Pt was advised to repeat labs on Aug 30 since she recently had an iron infusion. Relevant orders: -CBC auto differential -Ferritin -Iron and Total Iron Binding Capacity Preop cardiovascular exam 07/11/2024 Assessment & Plan (07/11/2024 4:22 PM EDT): Patient was seen for pre-operative evaluation. Patient reports no symptoms of CP at rest or with exertion, dyspnea at rest or with exertion, PND, LE edema, claudication, or palpitations. Patient has no hx of ischemic heart disease, CHF, CVD, diabetes, recent anticoagulant or antithrombotic use, person or family hx of coagulopathy. Patient reports no history of stress test, cardiac cath or coronary revascularization. Patients without any known cardiac risk factors (will undergo low risk surgery, no hx of ischemic heart disease, no h/o CVD, no h/o CHF, & no insulin dependent diabetes mellitus or known renal failure). According to the RCRI, this number of risk factors stratifies the patient to Class O, which carries a 0.4% risk of major CV complications. In this case, CV Risk is low for the intended procedure. Abdominal pain 04/16/2024 Assessment & Plan (04/16/2024 11:27 AM EDT): Reports she has a f/up with bariatric provider, they consider could be related to her bariatric surgery. At this moment will defer further testing and f/up as needed Bilateral hand swelling 04/11/2024 Assessment & Plan (04/12/2024 12:08 AM EDT): -The pt was informed that the swelling could be due to liquid retention related to her epicondylitis, affecting the extensor muscles of the hand (extensor carpi radialis). -Labs for TSH W/Reflex to FT4 to rule out any thyroid concerns possibly affecting the current symptoms the pt is experiencing Right lateral epicondylitis 04/11/2024 Assessment & Plan (04/12/2024 12:10 AM EDT): Pt was provided a list with instructions for therapeutic exercise to reduce swelling and discomfort. Lymphadenopathy 02/06/2024 Assessment & Plan (02/06/2024 9:46 PM EDT): Referred to ENT for Hx of persistent left sided cervical LAD, benign w/u Upper respiratory tract infection 01/22/2024 LAD (lymphadenopathy) of left cervical region Assessment & Plan (01/23/2024 10:15 AM EST): Reports persistent LAD on the left side of her neck. 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 FU PAP results. Consider PAP smear in the next 5 years if today's normal. HPV and Trichomonas specimen were obtained. FU results. No concerns for domestic violence. Hypertension 11/30/2023 Primary pulmonary hypertension 11/09/2023 1 01/10/2023 Intractable migraine without status migrainosus 11/09/2023 Assessment & Plan (11/09/2023 11:20 AM EST): Patient that presented visit with constant headaches will have an increase of Topamax to treat concern. In addition, patient will be referred to Neurology. Patient was advised to notify office if symptom doesn't improve. Intestinal malabsorption following gastrectomy 1 11/09/2023 Assessment & Plan (01/02/2024 12:33 PM EST): Referral to re-establish with bariatric provider sent 01/02/24 Vitamin D deficiency 05/14/2019 11/09/2023 Assessment & Plan (11/09/2023 11:21 AM EST): -Labs: Vit.D-25 Obesity (BMI 30.0-34.9) 02/12/2019 11/09/20 23 Overview (11/09/2023): s/p gastric sleeve (2017) Assessment & Plan (11/09/2023 11:25 AM EST): Discussed calorie deficit, recommended reduction of 20-30% of maintenance calories; testing director referral offered. Recommended to decrease soda and sugary beverage consumption. Recommended at least 20 g per meal of protein to assist with satiety. Recommended at least 150 min/week of moderate intensity exercise. Labs: CBC, Comp. Met. Panel, Lipid Panel. GERD (gastroesophageal reflux disease) 7 11/09/2023 Overview (01/02/2024): H/o Minimal erosive gastritis EGD 01/27/2017, Neg for H. pylori. Probably caused by NSAIDs. Assessment & Plan (02/06/2024 9:47 PM EDT): Referred to gastroenterology due to persistent epigastric pain, hx of GERD Sleep related hypoventilatio n in conditions classified elsewhere 12/29/2015 Obstructive sleep apnea 12/29/2015 Overview (04/04/2025): [facility] Polysomnogram: Date 02/04/2019; EULA 12, AH 8; HI 5; Unclassified apneas 0; Obstructive apneas 46; Central apneas 15; Mixed apneas 1; hypopneas 39; average oxygen saturation 95% (lowest 78% without saturations <88% for 5% or more of study) - Obstructive Sleep Apnea - mild; mostly obstructive apneas and hypopneas; some central apneas; without sleep related hypoventilation by 2019 home polysomnogram. Assessment & Plan (04/07/2025 8:21 AM EDT): Patient with a hx of sleep apnea, will start patient on zepbound for management of her sleep apnea as it is FDA approved for sleep apnea management. Reviewed mechanism of action with patient. Discussed side effects with patient: nausea, vomiting, diarrhea & risk of pancreatitis. No contraindications identified: , hx of pancreatitis, hx of medullary thyroid cancer or MEN 2. Hyperlipidemia 10/29/2015 11/09/2023 Prediabetes 01/23/2015 11/09/2023 Overview (11/09/2023): 5.8 A1c Phlebolithiasis 11/25/2014 11/09/2023 Overview (11/09/2023): CT abdomen w/contrast- no evidence of bowel obstruction or appendicitis Left ovary corpus luteum. Multiple phleboliths along rt ureter,no renal calculi or hydronephrosis. Rt sided retroperitoneal lymphadenopathy . ? Unclear etiology. Back pain 08/05/2014 11/09/2023 Overview (11/09/2023): Overview: -minimal spondylitic change Headache 06/25/2014 11/09/2023 Overview (11/09/2023): Overview: Seen in er at [facility] on 09/19/14 for headache,possible flagyl side effect Sent home on fioricet and stop flagyl . Ct head- negetive. Ct head- 11/05/14- neg Seen for headache at [facility] on Oct 8 as well as 9 -on percocet. Assessment & Plan (04/07/2025 8:20 AM EDT): Patient reports persistent headaches following the traumatic incident. She mentions photosensitivity and has an upcoming appointment with an sales support manager. The patient previously used Topamax for headache management but discontinued use. Given the post-traumatic nature and persistence of headaches, a comprehensive headache management plan is warranted. Plan: - Restart Topamax for headache prevention - Prescribe sumatriptan for acute management of severe headaches - Await ophthalmology consultation results - Recommend use of melatonin for sleep improvement - referral to neurology - Follow up in 4 weeks to assess effectiveness of headache management plan Resolved Problems Problem Noted Date Diagnosed Date Resolved Date Chronic cough 01/22/2024 02/06/2024 Assessment & Plan (01/23/2024 10:15 AM EST): Ddx postnasal drip Will send w/u for chronic cough Followup in 1 month Elevated BP without diagnosis of hypertension 11/09/2002/06/2024 Assessment & Plan (11/09/2023 11:25 AM EST): Uncontrolled: patient presented visit with an elevated blood pressure with readings of 148/94 mmHg. As a result, patient will be given a Blood pressure kit, in which was advised to monitor blood pressure at home, and bring readings upon next office visit. If home readings are consistently elevated, patient will be treated with medications to control readings. -Lab: Urinalysis. Encounters * This document contains information received from the source organization and may not represent a complete record from that organization. Date Type Department Care Team Description 04/11/2025 Telephone [facility] [address] [place] [address] Jody Rey MD Medication Question 04/04/2025 9:45 AM EDT Office Visit [facility] [address] [place] [address] Jody Rey MD Penetrating traumatic injury of face (Primary Dx); Intractable acute post-traumatic headache; Obstructive sleep apnea; Other migraine without status migrainosus, intractable; Anemia, unspecified type; Hyperlipidemia, unspecified hyperlipidemia type; Acute stress disorder 04/04/2025 Refill [facility] [address] [place] [address] Jody Rey MD Obstructive sleep apnea 04/04/2025 Travel 03/28/2025 Patient Outreach [facility] [address] [place], [place] [phone] Jody Rey MD Pre-visit Planning (SDOH screening negative and Tobacco screening negative) 02/14/2025 Telephone [facility] [address] [place], [place] [phone] Jody Rey MD 02/03/2025 2:40 PM EDT Office Visit [facility] [address] [place], [place] [phone] Kamala Villegas MD Contusion of soft tissue (Primary Dx); Laceration of forehead, initial encounter 02/03/2025 Travel from Last 3 Months Immunizations Immunization Administration Dates Next Due Influenza Injectable Quadriv alant Preservative Free IIV4 MDCK 10/05/2021,02/05/2020 Pneumococcal Polysaccharide PPSV23 01/25/2018 Social History Tobacco Use Types Packs/Day Years Used Date Smoking Tobacco: Never Passive Smoke Exposure: Never Smokeless Tobacco: Never Tobacco Cessation:Counseling Given: Not Answered Depression Answer Date Recorded Patient Health Questionnaire-9 [...] Orientation Straight 11/09/2023 12 :26 PM EST Last Filed Vital Signs Vital Sign Reading Time Taken Comments Blood Pressure 134/90 04/04/2025 9:35 AM EDT Pulse 84 04/04/2025 9:35 AM EDT Temperature 36.8 ??C (98.2 ??F) 04/04/2025 9:35 AM ED T Respiratory Rate 20 04/04/2025 9:35 AM EDT Oxygen Saturation 98% 04/04/2025 9:35 AM EDT Inhaled Oxygen Concentration - - Weight 68.8 kg (151 lb 9.6 oz) 04/04/2025 9:35 A M EDT Height 148 cm (4' 10.27 ) 04/04/2025 9:35 AM EDT Body Mass Index 31.39 04/04/2025 9:35 AM EDT Plan of Treatment Health Maintenance Due Date Last Done Comments CT Colonography 1979 Colonoscopy 1979 Colorectal Cancer Screening 1979 Diabetes: Hemoglobin A1C 1979 FIT DNA/Cologuard 1979 FIT 1979 FOBT 1979 Sigmoidoscopy 1979 Family Planning (PISQ) 1994 DTaP/Tdap/Td Vaccines (1 - Tdap) 1998 Hepatitis B Vaccines (1 of 3 - 19+ 3-dose series) 1998 COVID-19 Vaccine ( - 2023-2 5 season) 2024 11/02/2021, 01/27/2021, 01/06/2021 Influenza Vaccine (#1) 2024 , 02/05/2020 Mammogram 01/09/2026 01/09/2025, 01/09/2025, 01/09/2025 SDOH Screening 03/28/2026 03/28/2025 Alcohol/Substance Use Screening 04/04/2026 04/04/2025 Depression Screening 04/04/2026 04/04/2025, 04/04/2025 Disability Screening 04/04/2026 04/04/2025 Tobacco Screening 04/04/2026 04/04/2025 Pap Smear 11/30/2026 11/30/2023, 11/30/2023 Cervical Cancer Screening 11/30/2028 HPV/Cotest 11/30/2028 11/30/2023 Lipid Panel 07/16/2029 07/16/2024, 11/09/2023 Zoster Vaccines (1 of 2) 2029 RSV Patients and Patients Aged 60 years or older (1 - 1-dose 75+ series) 2054 Pneumococcal Vaccine: Pediatrics (0 to 5 Years) and At-Risk Patients (6 to 49) Years) Aged Out 01/25/2018 No longer eligible b ased on patient's age to complete this topic HIV Screening Completed 07/16/2024, 11/09/2023 Hepatitis C Screening Completed 07/16/2024 , 11/09/2023 HIB Vaccines Aged Out No longer eligi [...] patient's age to complete this topic Meningococcal Vaccine Aged Out No guillaume valerie eligible based on patient's age to complete this topic RSV under 20 months Aged Out No longe r eligible based on patient's age to complete this topic Rotavirus Vaccines Aged Out No longer eligible based on patient's age to complete this topic Procedures Procedure Name Priority Date/Time Associated Diagnosis Comments BI MAMMOGRAM SCREENING BILATERAL Routine 01/09/2025 2:45 PM EST HEPATITIS C AB W/REFL TO HCV RNA, QN, PCR Routine 07/16/2024 8:16 AM EDT HIV 1/2 ANTIGEN/ANTIBODY, FOURTH GENERATION W/RFL Routine 07/16/2024 8:16 AM EDT LIPID PANEL, STANDARD Routine 07/16/2024 8:16 AM EDT HPV MRNA E6/E7 REFLEX TO HPV 16, 18/45 Routine 11/30/2023 3:20 PM EST IMAGE-GUIDED PAP W/AGE BASED SCR,W/CT/NG/TRICH Routine 11/30/2023 3:20 PM EST Cervical cancer screening from Last 3 Months or Most Recently Relevant to Health Maintenance Results * BI Mammogram Screening Bilateral (01/09/2025 2:45 PM EST) Anatomical Region Laterality Modality Breast Bilateral Mammography Historical Provider IMG BI PROCEDURES Final R esult * Hepatitis C Antibody with Reflex to HCV, RNA, Quantitative, Real-Time PCR (07/16/2024 8:16 AM EDT) Hepatitis C Antibody Nonreactive Nonreactive [facility] Comment:Antibodies to HCV no t detected; does not exclude early acuteHCV infection. 07/16/2024 8:16 AM EDT 07/16/2024 8:16 AM EDT Jody Rey MD LAB BLOOD ORDERABLES Final Re sult [facility] [address] [place] [phone] * HIV-1/2 Antigen and Antibodies, Fourth Generation, with Reflexes (07/16/2024 8:16 AM EDT) HIV AB/AG Nonreactive Nonreactive [facility] Comment:HIV-1 p24 Ag and/or HIV-1/HIV-2 Ab not detected.A test result that is nonreactive does not exclude thepossibility of exposure to or infection with HIV-1 and/orHIV-2. Nonreactive results in this assay for individualswith prior exposure to HIV-1 and/or HIV-2 may be due toantigen and antibody levels that are below the limit ofdetection of this assay.The [employer] HIV Ag/Ab Combo assay result andsupplemental assay results should be interpreted inconjunction with the patient's clinical presentation,history and other laboratory results. If the results areinconsistent with clinical evidence, additional testing issuggested to confirm the result. 07/16/2024 8:16 AM EDT 07/16/2024 8:16 AM EDT us Jody Rey MD LAB BLOOD ORDERABLES Final Re sult [facility] [address] [place] [phone] * (ABNORMAL) Lipid Panel, Standard (07/16/2024 8:16 AM EDT) Pathologist [facility] Triglycerides 96 <150 mg/dL [facility] Comment:Desirable Triglyceri de: less than 150 mg/dLBorderline High Triglyceride 150-199 mg/dLHigh Triglyceride: 200-499 mg/dLVery High Triglyceride: greater than or equal to 5OO mg/dL Cholesterol 242(H) <200 mg/dL [facility] Comment:Desirable Cholestero l: less than 200 mg/dLBorderline High Cholesterol: 200-239 mg/dLHigh Cholesterol: greater than 239 mg/dL LDL Cholesterol Calculated 182(H) <100 mg/dL [facility] Comment:Desirable LDL: less than 100 mg/dLNear Optimal/Above Optimal LDL: 110- 129 mg/dLBorderline High LDL: 130-159 mg/dLHigh LDL: 160-189 mg/dLVery High LDL: greater than or equal to 190 mg/dL HDL Cholesterol 41 >40 mg/dL [facility] Comment:Desirable HDL: great er than 40 mg/dL Note: This HDL assay may give artificially low results in patients with liver disease. 07/16/2024 8:16 AM EDT 07/16/2024 8:16 AM EDT Jody Rey MD LAB BLOOD ORDERABLES Final Re sult Performing Organization Address [facility]/ZIP Co de Phone Number [facility] [address] [place] [phone] * Image-Guided Pap with Age-Based Screening??with CT/NG,??Trichomonas (11/30/2023 3:20 PM EST) Pathologist [facility] Trichomonas (NAAT) NOT DETECTED NOT DETECTED [facility] Comment:The analytical perfo rmance characteristics of thisassay have been determined by [employer]. Themodifications have not been cleared or approved bythe FDA. This assay has been validated pursuant to theCLIA regulations and is used for clinical purposes.For additional information, please refer tohttp://education.[employer]/faq/Trichomonastma(This link is being provided for information/educational purposes only.)THIS TEST WAS PERFORMED AT:[facility] [place] [phone] CHACON MD CTNG Ref Lab NOT DETECTED NOT DETECTED [facility] NG Ref Lab NOT DETECTED NOT DETECTED [facility] Cervix 11/30/2023 3:20 PM EST 12/01/2023 9:30 AM EST Jody Rey MD LAB CYTOLOGY ORDERABLES Final Result Performing Organization Address [facility]/ZIP Co de Phone Number [facility] [address] [place] [phone] * HPV mRNA E6/E7 w/Reflex to HPV Genotypes 16, 18/45 (11/30/2023 3:20 PM EST) HPV nRNA E6/E7 Not Detected Not Detected [facility] Comment:Methodology: Transcr iption-Mediated AmplificationThis assay detects E6/E7 viral messenger RNA (mRNA) from 14high-risk HPV types (16,18,31,33,35,39,45,51,52,56,58,59,66,68).Cervical sources are required for HPV testing.If a vaginal source from a patient who has had atotal hysterectomy with removal of cervix wassubmitted, please contact the testing laboratoryfor alternative testing options.For additional information, please refer tohttp://education.[employer]/faq/WOX796a4(This link if provided for information/educational purposes only.)THIS TEST WAS PERFORMED AT:[facility] [place] [phone] CHACON MD HPV mRNA E6/E7 TNP [facility] HPV 16 RNA [facility] HPV 18/45 RNA [facility] 11/30/2023 3:20 PM EST 12/01/2023 9:30 AM EST us Jody Rey MD LAB CYTOLOGY ORDERABLES Final Result [facility] [address] [place] [phone] from Last 3 Months or Most Recently Relevant to Health Maintenance Insurance [employer] OPEN ACCESS Care Teams Mental Retardation Nurse Relationship Specialty Start Date End Date Jody Rey MD [address] [place] [phone] PCP - General Family Medicine 09/18/23
[2025-04-15 14:19] LABS: MANUAL DIFF FLAG NO
[2025-04-15 14:28] LABS: Basophils Percent Auto 0.7 % (0-2); Eosinophils Absolute Auto 0.1 X10*3/uL (0.0-0.4); Eosinophils Percent Auto 2.1 % (0-4); Hemoglobin 12.6 g/dl (12.0-16.0); Imm Gran Abs Auto 0.02 X10*3/uL (0.00-0.03); Imm Gran Pct Auto 0.4 % (0.0-0.4); Lymphocytes Absolute Auto 1.8 X10*3/uL (1.2-4.9); Mean Corpuscular HGB Conc 32.3 g/dl (31.0-35.0); Mean Corpuscular Hemoglobin 28.1 pg (27.0-33.0); Mean Corpuscular Volume 87.1 fL (80.0-98.0); Mean Platelet Volume 12.2 fL (9.4-12.3); Monocytes Absolute Auto 0.4 X10*3/uL (0.1-1.2); Monocytes Percent Auto 7.1 % (2-11); Neutrophils Absolute Auto 3.3 x10*3/uL (2.0-8.3); Neutrophils Percent Auto 57.7 % (45-73); Platelet Count 211 X10*3/uL (160-400); Red Blood Count 4.48 X10*6/uL (4.20-5.50); Red Cell Distribution Width 13.4 % (11.0-16.0); White Blood Count 5.6 X10*3/uL (4.8-10.8)
[2025-04-15 14:49] LABS: Cholesterol 239 mg/dL (<200); HDL Cholesterol 50 mg/dL (>40); Iron 77 mcg/dL (30-160); LDL Cholesterol Calculated 171 mg/dL (<100); Percent Iron Saturation 27 % (15-50); Total Iron Binding Capacity 288 mcg/dL (228-428); Triglycerides 93 mg/dL (<150); Unsaturated Iron Binding 211 ug/dL
[2025-04-15 14:59] LABS: Ferritin 35 ng/mL (10-250)
== END 2025-04-15 08:26 | disposition home or self-care (01) ==
LOC: HO.CHCLDS 08:25
PROVIDERS: Visit Provider Family Medicine
DX: D64.9 Anemia, unspecified (principal); E78.5 Hyperlipidemia, unspecified
CPT/HCPCS: 36415; 80061; 82728; 83540; 85025

== ENCOUNTER 2025-05-29 09:33 | Outpatient (AMB) | payer OTHER, SELFPAY ==
--- NOTE | 2025-05-29 09:46 | MHC.OFFVIS ---
Intake Visit Reasons: headache Allergies No Known Allergies Allergy (Verified 11/10/23 11:05) Medication List - Last Reconciled 05/29/25 by Adrien Vaughn MD acetaminophen (Tylenol Extra Strength) 1,000 mg PO Q6H PRN epinephrine 0.3 mg IM ONCE PRN losartan 50 mg PO QAM magnesium oxide 400 mg PO BEDTIME omeprazole 20 mg PO DAILY riboflavin (vitamin B2) 400 mg PO DAILY sumatriptan succinate mg PO DIRECTED topiramate 50 mg PO DAILY HPI Comments Details: 43-year-old woman with hypertension and migraine type of headaches. Some headaches have involved visual aura with seeing black spots or blurred vision. She recently had a forehead injury with a laceration related to a basketball who falling on her. After that she had somewhat more headaches but she stated that overall migraines were better. She was not using topiramate on regular basis and stated that she was taking it when she needed. [facility] Medical History (Updated 05/29/25 @ 09:56 by Adrien Vaughn MD) GERD (gastroesophageal reflux disease) Hypertension Numbness Chronic migraine with aura Back pain Asthma Obstructive sleep apnea Hyperlipidemia Pulmonary HTN Intestinal malabsorption Intertrigo Abdominal pannus Surgical History (System 11/10/23 @ 11:05 by Blessing Billy) Hx of bilateral breast reduction surgery H/O gastric sleeve Family History Mother Leukemia Hypertension Maternal Grandmother Hypertension Brother Hypertension Brother Parkinsons Social History (System 11/10/23 @ 11:05 by Blessing Billy) Household Members: Spouse Housing: House Alcohol intake: current Alcohol intake frequency: a few times a month Alcohol type: wine Patient Tobacco Use Status: Never used Tobacco Review of Systems Const Details: Constitutional:?No fever, chills, fatigue, weight loss, or night sweats. HEENT:?No headache, vision changes, hearing loss, nasal congestion, sore throat. Neurological:?No dizziness, syncope, seizures, numbness, tingling, weakness, tremors, memory loss. Psychiatric:?No anxiety, depression, mood swings, sleep disturbance, or hallucinations. Endocrine:?No heat/cold intolerance, polydipsia, polyuria, or hair/skin changes. Hematologic/Lymphatic:?No easy bruising, bleeding, or lymphadenopathy. Integumentary (Skin):?No rash, lesions, itching, or color changes. ? Physical Exam Neuro Other: Mental Status: Alert and oriented to person, place, and time. Normal attention. Normal spontaneous speech, fluency, and comprehension. No obvious issues with mood and memory. Affect is appropriate. Cranial Nerves: CN II: Visual morales full to confrontation, visual acuity intact. CN III, IV, : Pupils equal, round, reactive to light and accommodation. Extraocular movements are normal. CN V: Facial sensation is normal. CN VII: Facial movements symmetrical. CN VIII: Hearing intact to bedside conversation is normal. CN IX, X: Palate elevates symmetrically. CN XI: Shoulder shrug and head turn symmetrical. CN XII: Tongue midline without atrophy or fasciculations. Motor: Bulk and tone normal in all extremities. No significant muscle weakness in arms and legs. No drift. Reflexes: Deep tendon reflexes 2+ and symmetric. Plantar response down-going bilaterally. Coordination: [id number]-[id number] and fkpd-[id number] testing normal. No dysmetria. Gait and Station: No obvious gait abnormality. No ataxia or instability. Sensory: Intact to light touch, pinprick, and vibration. Romberg is negative. Extrapyramidal: Full facial expressions and blinking. No rigidity. Movements are appropriate with no tremor or abnormality. Speech: Normal; no dysarthria or tremor. Assessment & Plan Assessment & Plan (1) Migraine with aura: Code(s): G43.109 - Migraine with aura, not intractable, without status migrainosus Category: Medical Qualifiers: Status migrainosus presence: without status migrainosus Intractability: not intractable Qualified Code(s): G43.109 - Migraine with aura, not intractable, without status migrainosus (2) Migraine without aura: Code(s): G43.009 - Migraine without aura, not intractable, without status migrainosus Category: Medical Qualifiers: Status migrainosus presence: without status migrainosus Intractability: not intractable Qualified Code(s): G43.009 - Migraine without aura, not intractable, without status migrainosus Plan 44 years old woman with migraine with and without aura. At this time migraine frequency was limited and she did not require daily medicine. She was using sumatriptan and topiramate on as needed basis. With recent head injury, she had more headaches but now she was feeling better again. She was reassured and educated and she could continue to use these medicines on as needed basis. If in future, headache frequency would increase, topiramate can be taken on daily basis. Coding Level of Care Code Est Pt Level 4 (62305) Diagnoses Migraine with aura and without status migrainosus, not intractable G43.109 Status migrainosus presence: without status migrainosus Intractability: not intractable Migraine without aura and without status migrainosus, not intractable G43.009 Status migrainosus presence: without status migrainosus Intractability: not intractable
--- OUTSIDE RECORDS SUMMARY | 2025-05-29 09:56 | XMS_ITS | Clinical Summary ---
Author Organization 175 [facility] Address [address] [place] [address] Phone Care Team Providers Care Slide Developer Name Role Phone Jody Rey MD Primary Care Provider [phone] Allergies No known active allergies Medications cholecalciferol [...] (20 mg total) by mouth. 3 Active losartan (COZAAR) 50 mg tablet Take 1 tablet (50 mg total) by mouth 1 (one) time each day. Active Active Problems Problem Noted Date Diagnosed Date Pelvic pain 05/09/2025 IUD migration 05/09/2025 Malpositioned intrauterine device 05/02/2025 Primary pulmonary hypertension (CMS/HCC V24, CMS /HCC [...] 12/29/2015 Obstructive sleep apnea 12/29/2015 Overview (10/02/2024): [facility] Home Polysomnogram: Date 02/04/2019; EULA 12, [...] 06/25/2014 Overview (10/02/2024): Seen in er at [facility] on 09/19/14 for headache,possible flagyl side effect Sent home on fioricet and stop flagyl . Ct head- negetive. Ct head- 11/05/14- neg Seen for headache at [facility] on Dec 8 as well as 9 -on percocet. Encounters Date Type Department Care Team Description 05/19/2025 Telephone Obstetrics and Gynecology - [address] [phone] Arleth Hernandez MD Procedure 05/09/2025 1:30 PM EDT Office Visit Obstetrics and Gynecology - [address] [phone] Arleth Hernandez MD Pelvic pain (Primary Dx); Intrauterine device (IUD) migration, subsequent encounter 05/02/2025 Telephone Obstetrics and Gynecology - [address] [phone] Natali Germain RN 04/30/2025 4:44 PM EDT - 04/30/2025 11:59 PM EDT Hospital Encounter Radiology Department - [address] [phone] Vagina bleeding; Pelvic pain; IUD (intrauterine device) in place Discharge Disposition: Home or Self Care 04/29/2025 3:30 PM EDT Office Visit Obstetrics and Gynecology - [address] [phone] Ayesha Wise PA Encounter for other contraceptive management (Primary Dx); Vagina bleeding; Pelvic pain; IUD (intrauterine device) in place from Last 3 Months Surgical History Surgery Date Site/Laterality Comments UPPER GASTROINTESTINAL ENDOSCOPY 01/27/2017 PROCEDURE: NC UPPER GI ENDOSCOPY PERFORMED; COMMENT: mild erosive gastritis; CLOtest negative. TUBAL LIGATION 2002 PROCEDURE: HISTORICAL TUBAL LIGATION SECTION PROCEDURE: HISTORICAL DELIVERY COLONOSCOPY 12/23/2020 PROCEDURE: HISTORICAL COLONOSCOPY; COMMENT: normal. BREAST REDUCTION PROCEDURE: NC BREAST REDUCTION; COMMENT: 1997 ESOPHAGOGASTRODUODENOSCOPY 01/26/2022 PROCEDURE: NC EGD TRANSORAL BIOPSY SINGLE/MULTIPLE; COMMENT: consistent with [...] COM MENT: Overview: Seen in er at [facility] on 09/19/14 for headache,possible flagyl side effect Sent home on fioricet and stop flagyl . Ct head- negetive. Ct head- 11/05/14- neg Seen for headache at [facility] on Nov 03 as well as 9 -on percocet. Hematuria 08/01/2014 DX:Hematuria; CO MMENT: Flank pain. Nml CT- no renal stones/obstruction Hyperlipidemia 10/29/2015 DX:Hyperlipidemi a Morbid obesity with BMI of 4 0.0-44.9, adult (CMS/HCC V24, CMS/HCC V28) 06/25/2014 DX:Morbid obesity wit h BMI of 40.0-44.9, adult ([facility]) Obstructive sleep apnea 12/29/2015 DX:Obstr uctive sleep apnea Phlebolithiasis 11/25/2014 DX:Phlebolithias is; COMMENT: CT abdomen w/contrast- no evidence of bowel obstruction or appendicitis Left ovary corpus luteum. Multiple phleboliths along rt ureter,no renal calculi or hydronephrosis. Rt sided retroperitoneal lymphadenopathy . ? Unclear etiology. Primary pulmonary hypertensi on (CMS/HCC V24, CMS/HCC V28) DX:Primary pulmonary hypert ension (HCC) Sleep-related [...] Date Smoking Tobacco: Never Smokeless Tobacco: Never Tobacco Cessation:Counseling Given: Not Answered Alcohol Use Standard Drinks/Week Comments Yes 0 [...] g Live Births 2 2 2 2 2 Date Outcome GA Total Labor Labor/2nd/3rd Weight Sex Type Anes PTL Kendal A1 A5 Name Clin Term Living Term Living Last Filed Vital Signs Vital Sign Reading Time Taken Comments Blood Pressure 133/89 05/09/2025 1:28 PM EDT Pulse 101 05/09/2025 1:28 PM EDT Temperature 36.4 C (97.6 F) 11/28/2024 1:46 PM EST Respiratory Rate 12 04/29/2025 3:22 PM EDT Oxygen Saturation - - Inhaled Oxygen Concentration - - Weight 69.4 kg (153 lb) 05/09/2025 1:28 PM EDT Height 149.9 cm (4' 11 ) 04/29/2025 3:22 PM EDT Body Mass Index 30.9 04/29/2025 3:22 PM EDT Plan of Treatment Upcoming Encounters Date Type Department Care Team (Late st Contact Info) Description 07/23/2025 8:45 AM EDT Hospital Encounter [facility] Main OR [address] [place] [phone] Renetta Ornelas, DO [address] [place] [address] 07/23/2025 8:45 AM EDT - 07/23/2025 10:15 AM EDT Surgery [facility] Main OR [address] [place] [phone] Renetta Ornelas, DO [address] [place] [address] HYSTEROSCOPY 12/02/2025 10:00 AM EST Office Visit Bariatric Surgery - [place] [address] [facility] [address] [place] [phone] Silvestre Reza MD [address] [address] Scheduled Procedures Name Priority Associated Diagnoses Date/Ti me HYSTEROSCOPY Malpositioned intrauterine device (IUD), initial encounter 07/23/2025 8:45 AM EDT Health Maintenance Due Date Last Done Comments [...] Vaccine ( season) 2024 11/02/2021, 01/27/2021, 01/06/2021 Hypertension/CHF/CAD Annual BMP Blood Test 11/28/2024 Influenza Vaccine (Season Ended) 2025 10/05/2021, 02/05/2020 Depression Screening 04/04/2026 04/04/2025 Breast Cancer Screening 01/09/2027 01/09/20, 07/01/2022, 07/09/2021, Additional history exists Cholesterol Screening (Lipid Panel) 04/15/2030 04/15/2025, 07/16/2024 HIV Screening Completed 07/16/2024 Hepatitis C [...] Procedure Name Priority Date/Time Associated Diagnosis Comments US PELVIS TRANSVAGINAL NON OB Routine 04/30/2025 5:24 PM EDT Vagina bleeding Pelvic pain IUD (intrauterine device) in place NC REMOVAL INTRAUTERINE DEVICE Routine 04/29/2025 4:13 PM EDT Encounter for other contraceptive management Vagina bleeding Pelvic pain MG MAMMO DIGITAL SCREENING W CHRIS BILAT Routine 01/09/2025 8:02 AM EST Screening mammogram, encounter for from Last 3 Months or Most Recently Relevant to Health Maintenance Results * US Pelvis Transvaginal Non OB (04/30/2025 5:24 PM EDT) Anatomical Region Laterality Modality Body Ultrasound 04/30/2025 6:04 PM EDT Impressions 04/30/2025 6:07 PM EDT Impression: 1. IUD is 0.4 cm from the fundal endometrium. 2. Difficult to determine if there is aberrant positioning of the IUD or if this is positional as the IUD is identified within the uterine body. -------- FINAL REPORT -------- Dictated By: Nick Arriola Dictated Date: 04/30/2025 18:04 ET Assigned Physician: Nick Arriola Reviewed and Electronically Signed By: Nick Arriola Signed Date: 04/30/2025 18:07 ET Workstation ID: [id number] Transcribed By: Self Edit Transcribed Date: 04/30/2025 18:04 ET Narrative 04/30/2025 6:07 PM EDT EXAMINATION: US PELVIS TRANSVAGINAL NON OB 04/30/2025 5:23 PM Patient : 1980 CLINICAL DATA/INDICATIONS: IUD placement, ?malpositioned IUD- unable to see strings in office Hx of fibroids COMPARISON: Ultrasound pelvis from 11/14/2022 TECHNIQUE: Multiple grayscale images of the pelvis were obtained to evaluate for IUD FINDINGS: The uterus measures 9.0 x 3.9 x 4.7 cm. IUD is 0.4 cm from the fundal endometrium. The IUD is identified within the uterine body. It is difficult to tell if this is due to position or aberrant positioning of the IUD. Procedure Note Nick Arriola MD - 04/30/2025 EXAMINATION: US PELVIS TRANSVAGINAL NON OB 04/30/2025 5:23 PM Patient :1980 CLINICAL DATA/INDICATIONS: IUD placement, ?malpositioned IUD- unable tosee strings in office Hx of fibroids COMPARISON: Ultrasound pelvis from 11/14/2022 TECHNIQUE: Multiple grayscale images of the pelvis were obtained toevaluate for IUD FINDINGS: The uterus measures 9.0 x 3.9 x 4.7 cm. IUD is 0.4 cm from the fundalendometrium. The IUD is identified within the uterine body. It isdifficult to tell if this is due to position or aberrant positioning ofthe IUD. IMPRESSION: Impression: 1. IUD is 0.4 cm from the fundal endometrium. 2. Difficult to determine if there is aberrant positioning of the IUD orif this is positional as the IUD is identified within the uterine body. -------- FINAL REPORT -------- Dictated By: Nick Arriola Dictated Date: 04/30/2025 18:04 ET Assigned Physician: Nick Arriola Reviewed and Electronically Signed By: Nick Arriola Signed Date: 04/30/2025 18:07 ET Workstation ID: [id number] Transcribed By: Self Edit Transcribed Date: 04/30/2025 18:04 ET us Ayesha ACBA IMG US PROCEDURES Final Resu lt * NC REMOVAL INTRAUTERINE DEVICE (04/29/2025 4:13 PM EDT) Ayesha Carpio PA - 04/29/2025 4:13 PM EDT GERTRUDIS Santos 04/29/2025 4:14 PM IUD Removal Date/Time: 04/29/2025 4:13 PM Performed by: GERTRUDIS Santos Authorized by: GERTRUDIS Santos Removal Procedure: Removal successful: no us Ayesha CABA IN CLINIC/BEDSIDE ORDERABLES Final Result * MG Mammo Digital Screening w Chris bilat (01/09/2025 8:02 AM EST) Anatomical Region Laterality Modality Breast Bilateral Mammography 01/09/2025 2:05 PM EST Impressions 01/09/2025 2:08 PM EST No mammographic evidence of malignancy. BREAST DENSITY: B - There are scattered areas of fibroglandular density. BI-RADS CATEGORY: 2 - BENIGN RECOMMENDATION: Screening bilateral mammogram is recommended in 1 year. MAMMO LOCATION: [place] [facility], [address] [place] [address], [id number], . -------- FINAL REPORT -------- Dictated By: Lavonne Rinaldi Dictated Date: 01/09/2025 14:05 ET Assigned Physician: Lavonne Rinaldi Reviewed and Electronically Signed By: Lavonne Rinaldi Signed Date: 01/09/2025 14:08 ET Workstation ID: [id number] Transcribed By: Self Edit Transcribed Date: 01/09/2025 14:05 ET Narrative 01/09/2025 2:08 PM EST EXAM: Screening Mammogram CLINICAL: 44 years old, Female, routine annual exam. History of bilateral reduction mammoplasty July 2024. COMPARISON: 07/01/2022 and 06/25/2021 TECHNIQUE: Bilateral MLO and CC views were obtained digitally with 3-D mammogram (digital breast tomosynthesis). Computer-aided detection was utilized in evaluation of this exam (CAD). FINDINGS: Interval postsurgical changes of bilateral reduction mammoplasty which have expected appearance. This will serve as a new baseline mammogram. No suspicious mass, architectural distortion, or suspicious calcifications [...] is recommended in 1 year. MAMMO LOCATION: [facility], [address] [place] [address], [id number], . 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
--- OUTSIDE RECORDS SUMMARY | 2025-05-29 09:56 | XMS_ITS | Clinical Summary ---
Author Organization [employer] Address [address] [place] [address] Care Team Providers Care Household Appliances Salesperson Name Role Phone Jody Rey MD Primary Care Provider [phone] Allergies No known active allergies Medications * [...] EVERY MORNING 90 tablet 1 024 Active tobramycin-dexAME THasone (Tobradex) ophthalmic suspension INSTILL 1 DROP INTO OPERATIVE EYE LAURI CHIRINOS A . START AFTER SURGERY. Active omega-3 acid ethyl esters (Lovaza) 1 g capsuleIndication s:Hyperlipidemia, unspecified hyperlipidemia type Take 1 capsule (1 g) by mouth 2 times daily. 60 capsule 11 024 2024 Active cholecalciferol (Vitamin D-3) 1.25 MG (87137 UT) capsule Take 1 capsule (50,000 Units) [...] per day. 90 tablet 1 025 Active melatonin 5 MG tablet Take 1 tablet (5 mg) by mouth Once per day. 90 tablet 1 025 Active SUMAtriptan (Imitrex) 50 MG tablet TOME TOMAS TABLETA POR VIA ORAL AT ONSET OF MIGRAINE, MAY REPEAT IN 2 HOURS IF NEEDED. MAX 2 DOSES/24 HOURS 9 tablet 025 Active EPINEPHrine (Epipen) 0.3 MG/0.3ML injection syringe INJECT 0.3 ML DIRECTED 1 TIME FOR 1 DOSE. 2 each 025 Active EPINEPHrine (Epipen) 0.3 MG/0.3ML injection syringe Inject 0.3 mL (0.3 mg) as directed 1 (one) time for 1 dose. 0.3 mL 024 06/17/ 2025 Discontinued SUMAtriptan (Imitrex) 50 MG tablet Take 1 tablet (50 mg) by mouth 1 (one) time if needed for migraine. May repeat dose once in 2 hours if no relief. Do not exceed 2 doses in 24 hours. 9 tablet 025 2024 Discontinued Active Problems Problem Noted Date Diagnosed Date [...] (11/30/2023 3:26 PM EST): Adult female for [employer] physical: Normal exam. FU PAP results. Consider [...] -Labs: Vit.D-25 Obesity (BMI 30.0-34.9) 02/12/2019 11/09/20 Overview (11/09/2023): s/p gastric sleeve (2016) Assessment & Plan (11/09/2023 11:25 AM EST): Discussed calorie deficit, recommended reduction of 20-30% of maintenance calories; ride mechanic referral offered. Recommended to decrease soda and [...] 12/29/2015 Obstructive sleep apnea 12/29/2015 Overview (04/04/2025): SMS Home Polysomnogram: Date 02/04/2019; EULA 12, AH [...] Overview (11/09/2023): Overview: Seen in er at [facility] on 09/19/14 for headache,possible flagyl side effect Sent home on fioricet and stop flagyl . Ct head- negetive. Ct head- 11/05/14- neg Seen for headache at [facility] on Oct 8 as well as 9 -on percocet. Assessment & Plan (04/07/2025 8:20 AM EDT): Patient reports persistent headaches following the traumatic incident. She mentions photosensitivity and has an upcoming appointment with an porcelain turner. The patient previously used Topamax for headache [...] month Elevated BP without diagnosis of hypertension 11/09/20 23 02/06/2024 Assessment & Plan (11/09/2023 11:25 AM EST): [...] organization. Date Type Department Care Team Description 05/12/2025 Refill [facility] [address] [place] [address] Boom Perkins MD 05/07/2025 Refill [facility] [address] [place] [address] Jody Rey MD 04/16/2025 Telephone [facility] [address] [place] [address] Jody Rey MD 04/11/2025 Telephone [facility] [address] [place] [address] Jody Rey MD Medication Question 04/04/2025 9:45 AM EDT Office Visit [facility] [address] [place] [address] Jody Rey MD Penetrating traumatic injury of face (Primary Dx); Intractable acute post-traumatic headache; Obstructive sleep apnea; Other migraine without status migrainosus, intractable; Anemia, unspecified type; Hyperlipidemia, unspecified hyperlipidemia type; Acute stress disorder 04/04/2025 Refill [facility] [address] [place] [address] Jody Rey MD Obstructive sleep apnea 04/04/2025 Travel 03/28/2025 Patient Outreach [facility] [address] [place] [address] Jody Rey MD Pre-visit Planning (SDOH screening negative and Tobacco screening negative) from Last 3 Months Immunizations Immunization Administration [...] 84 04/04/2025 9:35 AM EDT Temperature 36.8 C (98.2 F) 04/04/2025 9:35 AM EDT Respiratory Rate 20 04/04/2025 9:35 AM EDT [...] - 19+ 3-dose series) 1998 COVID-19 Vaccine (4 2023-2 5 season) 2024 11/02/2021, 01/27/2021, 01/06/2021 Influenza Vaccine (#1) 2025 , 02/05/2020 Mammogram 01/09/2026 01/09/2025, 01/09/2025, 01/09/2025 SDOH Screening 03/28/2026 03/28/2025 Alcohol/Substance Use Screening 04/04/2026 04/04/2025 Depression Screening 04/04/2026 04/04/2025, 04/04/2025 Disability Screening 04/04/2026 04/04/2025 Tobacco Screening 04/04/2026 04/04/2025 Pap Smear 11/30/2026 11/30/2023, 11/30/2023 Cervical Cancer Screening 11/30/2028 HPV/Cotest 11/30/2028 11/30/2023 Zoster Vaccines (1 of 2) 2029 Lipid Panel 04/15/2030 04/15/2025, 07/16/2024, 11/09/2023 RSV Patients and Patients Aged 60 years or older (1 - 1-dose 75+ series) 2054 Pneumococcal Vaccine: Pediatrics (0 to 5 Years) and At-Risk Patients (6 to 49) Years Aged Out 01/25/2018 No longer eligible b [...] Procedure Name Priority Date/Time Associated Diagnosis Comments LIPID PANEL, STANDARD Routine 04/15/2025 8:28 AM EDT Hyperlipidemia, unspecified hyperlipidemia type IRON AND TOTAL IRON BINDING CAPACITY Routine 04/15/2025 8:28 AM EDT Anemia, unspecified type FERRITIN Routine 04/15/2025 8:28 AM EDT Anemia, unspecified type CBC WITH AUTO DIFFERENTIAL Routine 04/15/2025 8:28 AM EDT Anemia, unspecified type BI MAMMOGRAM SCREENING BILATERAL Routine 01/09/2025 2:45 PM EST HEPATITIS C AB W/REFL TO HCV RNA, QN, PCR Routine 07/16/2024 8:16 AM EDT HIV 1/2 ANTIGEN/ANTIBODY, FOURTH GENERATION W/RFL Routine 07/16/2024 8:16 AM EDT HPV MRNA E6/E7 REFLEX TO HPV 16, 18/45 Routine 11/30/2023 3:20 PM EST IMAGE-GUIDED PAP W/AGE BASED SCR,W/CT/NG/TRICH Routine 11/30/2023 3:20 PM EST Cervical cancer screening from Last 3 Months or Most Recently Relevant to Health Maintenance Results * CBC auto differential (04/15/2025 8:28 AM EDT) White Blood Count 5.6 4.8 - 10.8 X10*3/uL [facility] Red Blood Count 4.48 4.20 - 5.50 X10*6/uL [facility] Hemoglobin 12.6 12.0 - 16.0 g/dl [facility] Hematocrit 39.0 37.0 - 47.0 % [facility] Mean Corpuscular Volume 87.1 80.0 - 98.0 fL [facility] Mean Corpuscular Hemoglobin 28.1 27.0 - 33.0 pg [facility] Mean Corpuscular HGB Conc 32.3 31.0 - 35.0 g/dl [facility] Red Cell Distribution Width 13.4 11.0 - 16.0 % [facility] Platelet Count 211 160 - 400 X10*3/uL [facility] Mean Platelet Volume 12.2 9.4 - 12.3 fL [facility] Neutrophils Percent Auto 57.7 45 - 73 % [facility] Imm Gran Pct Auto 0.4 0.0 - 0.4 % [facility] Lymphocytes Percent Auto 32.0 20 - 40 % [facility] Monocytes Percent Auto 7.1 2 - 11 % [facility] Eosinophils Percent Auto 2.1 0 - 4 % [facility] Basophils Percent Auto 0.7 0 - 2 % [facility] NRBC Pct Auto 0.0 0.0 - 0.2 /100WBC [facility] Neutrophils Absolute Auto 3.3 2.0 - 8.3 x10*3/uL [facility] Imm Gran Abs Auto 0.02 0.00 - 0.03 X10*3/uL [facility] Lymphocytes Absolute Auto 1.8 1.2 - 4.9 X10*3/uL [facility] Monocytes Absolute Auto 0.4 0.1 - 1.2 X10*3/uL [facility] Eosinophils Absolute Auto 0.1 0.0 - 0.4 X10*3/uL [facility] Basophils Absolute Auto 0.0 0.0 - 0.2 X10*3/uL [facility] NRBC Abs Auto 0.000 0.0 - 0.012 X10*3/uL [facility] Blood Venous blood specimen / Unknown 04/15/2025 8:28 AM EDT 04/15/2025 2:17 PM EDT us Jody Rey MD LAB BLOOD ORDERABLES Final Re sult [facility] [address] [place] [phone] [phone] * Iron And Total Iron Binding Capacity (04/15/2025 8:28 AM EDT) Pathologist [facility] Iron 77 30 - 160 mcg/dL [facility] Total Iron Binding Capacity 288 228 - 428 mcg/dL [facility] Percent Iron Saturation 27 15 - 50 % [facility] Unsaturated Iron Binding 211 ug/dL [facility] Blood Venous blood specimen / Unknown 04/15/2025 8:28 AM EDT 04/15/2025 2:14 PM EDT us Jody Rey MD LAB BLOOD ORDERABLES Final Re sult Performing Organization Address [facility] Co de Phone Number [facility] [address] [place] [phone] * Ferritin (04/15/2025 8:28 AM EDT) Pathologist [facility] Ferritin 35 10 - 250 ng/mL [facility] Blood Venous blood specimen / Unknown 04/15/2025 8:28 AM EDT 04/15/2025 2:14 PM EDT us Jody Rey MD LAB BLOOD ORDERABLES Final Re sult Performing Organization Address [facility] Co de Phone Number [facility] [address] [place] [phone] * (ABNORMAL) Lipid Panel, Standard (04/15/2025 8:28 AM EDT) Pathologist [facility] Triglycerides 93 <150 mg/dL [facility] Comment:Desirable Triglyceri de: less than 150 mg/dLBorderline High Triglyceride 150-199 mg/dLHigh Triglyceride: 200-499 mg/dLVery High Triglyceride: greater than or equal to 5OO mg/dL Cholesterol 239(H) <200 mg/dL [facility] Comment:Desirable Cholestero l: less than 200 mg/dLBorderline High Cholesterol: 200-239 mg/dLHigh Cholesterol: greater than 239 mg/dL LDL Cholesterol Calculated 171(H) <100 mg/dL [facility] Comment:Desirable LDL: less than 100 mg/dLNear Optimal/Above Optimal LDL: 110- 129 mg/dLBorderline High LDL: 130-159 mg/dLHigh LDL: 160-189 mg/dLVery High LDL: greater than or equal to 190 mg/dL HDL Cholesterol 50 >40 mg/dL [facility] Comment:Desirable HDL: great er than 40 mg/dL Note: This HDL assay may give artificially low results in patients with liver disease. Blood Venous blood specimen / Unknown 04/15/2025 8:28 AM EDT 04/15/2025 2:14 PM EDT Jody Rey MD LAB BLOOD ORDERABLES Final Re sult Performing Organization Address [facility] Co de Phone Number [facility] [address] [place] [phone] * BI Mammogram Screening Bilateral (01/09/2025 2:45 PM EST) Anatomical Region Laterality Modality Breast Bilateral Mammography Historical Provider IMG BI PROCEDURES Final R esult * Hepatitis C Antibody with Reflex to HCV, RNA, Quantitative, Real-Time PCR (07/16/2024 8:16 AM EDT) Hepatitis C Antibody Nonreactive Nonreactive [facility] Comment:Antibodies to HCV no t detected; does not exclude early acuteHCV infection. 07/16/2024 8:16 AM EDT 07/16/2024 8:16 AM EDT Jody Rey MD LAB BLOOD ORDERABLES Final Re sult Performing Organization Address [facility]/ZIP Co de Phone Number [facility] [address] [place] [phone] [phone] * HIV-1/2 Antigen and Antibodies, Fourth Generation, with Reflexes (07/16/2024 8:16 AM EDT) HIV AB/AG Nonreactive Nonreactive [facility] Comment:HIV-1 p24 Ag and/or HIV-1/HIV-2 Ab not detected.A test result that is nonreactive does not exclude thepossibility of exposure to or infection with HIV-1 and/orHIV-2. Nonreactive results in this assay for individualswith prior exposure to HIV-1 and/or HIV-2 may be due toantigen and antibody levels that are below the limit ofdetection of this assay.The [employer] HIV Ag/Ab Combo assay result andsupplemental assay results should be interpreted inconjunction with the patient's clinical presentation,history and other laboratory results. If the results areinconsistent with clinical evidence, additional testing issuggested to confirm the result. 07/16/2024 8:16 AM EDT 07/16/2024 8:16 AM EDT us Jody Rey MD LAB BLOOD ORDERABLES Final Re sult [facility] [address] [place] [address] [phone] * Image-Guided Pap with Age-Based Screening??with CT/NG,??Trichomonas (11/30/2023 3:20 PM EST) Trichomonas (NAAT) NOT DETECTED NOT DETECTED [facility] Comment:The analytical perfo rmance characteristics of thisassay have been determined by [employer]. Themodifications have not been cleared or approved bythe FDA. This assay has been validated pursuant to theIA regulations and is used for clinical purposes.For additional information, please refer tohttp://education.Stipple/faq/Trichomonastma(This link is being provided for information/educational purposes only.)THIS TEST WAS PERFORMED AT:[employer] [address] [phone] CHACON MD CTNG Ref Lab NOT DETECTED NOT DETECTED [facility] NG Ref Lab NOT DETECTED NOT DETECTED [facility] Cervix 11/30/2023 3:20 PM EST 12/01/2023 9:30 AM EST us Jody Rey MD LAB CYTOLOGY ORDERABLES Final Result Performing Organization Address [facility] Co de Phone Number [facility] [address] [place] [phone] * HPV mRNA E6/E7 w/Reflex to HPV Genotypes 16, 18/45 (11/30/2023 3:20 PM EST) HPV nRNA E6/E7 Not Detected Not Detected [facility] Comment:Methodology: Transcr iption-Mediated AmplificationThis assay detects E6/E7 viral messenger RNA (mRNA) from 14high-risk HPV types (16,18,31,33,35,39,45,51,52,56,58,59,66,68).Cervical sources are required for HPV testing.If a vaginal source from a patient who has had atotal hysterectomy with removal of cervix wassubmitted, please contact the testing laboratoryfor alternative testing options.For additional information, please refer tohttp://education.Stipple/faq/RIE823d2(This link if provided for information/educational purposes only.)THIS TEST WAS PERFORMED AT:[employer] [place] [phone] CHACON MD HPV mRNA E6/E7 [facility] HPV 16 RNA [facility] HPV 18/45 RNA [facility] 11/30/2023 3:20 PM EST 12/01/2023 9:30 AM EST us Jody Rey MD LAB CYTOLOGY ORDERABLES Final Result Performing Organization Address [facility]/ZIP Co de Phone Number [facility] [address] [place] [phone] from Last 3 Months or Most Recently Relevant to Health Maintenance Insurance [employer] OPEN ACCESS Care Teams Household Appliances Salesperson Relationship Specialty Start Date End Date Jody Rey MD [address] [place] [phone] PCP - General Family Medicine 09/18/23
== END 2025-05-29 09:58 | disposition home or self-care (01) ==
LOC: HO.HSM 09:33
PROVIDERS: PCP Family Medicine; Visit Provider Psychiatry & Neurology Neurology
DX: G43.109 Migraine with aura, not intractable, without status migrainosus (principal); G43.009 Migraine without aura, not intractable, without status migrainosus
CPT/HCPCS: 99213

== ENCOUNTER 2025-10-31 08:27 | Outpatient (REF) | payer OTHER, SELFPAY ==
[2025-10-31 17:12] LABS: Cholesterol 255 mg/dL (<200); HDL Cholesterol 46 mg/dL (>40); Triglycerides 90 mg/dL (<150)
== END 2025-10-31 08:28 | disposition home or self-care (01) ==
LOC: HO.CHCLDS 08:27
PROVIDERS: Visit Provider Family Medicine
DX: M79.641 Pain in right hand (principal); M79.642 Pain in left hand; E78.5 Hyperlipidemia, unspecified
CPT/HCPCS: 36415; 80061; 86200; 86431